=== PATIENT | female | born 1995 | race Caucasian/White ===

== ENCOUNTER 2019-11-12 03:25 | Emergency (ER) | payer BC, SELFPAY ==
[2019-11-12 03:33] VITALS: BP 109/77; PULSE 117; RESP 16; TEMP 36.8; O2SAT 99; BMI 19.0
--- NOTE | 2019-11-12 04:07 | ED_ITS ---
Entered by Evette Summers, acting as scribe for Xavier Kilgore DO Nov 12, 2019 03:25 HPI - Skin/Abscess/Foreign Bdy General: Chief complaint: Skin/Abscess/Foreign Body Stated complaint: BOIL ON RIGHT LEG Time Seen by Provider: 11/12/19 04:08 Source: patient Mode of arrival: ambulatory History of Present Illness: HPI narrative: 23 y/o female presents to the ED with complaint of boil to right leg. MD complaint: abscess/boil Onset (ago): day(s) (5) Location: LLE (thigh) Severity: moderate Quality: burning Pain Consistency: constant Relieving factors: none Associated symptoms: Reports fever(s); Deny chills, nausea or vomiting Review of Systems Const: Reports: fever; Denies: chills Eyes: Denies: change in vision or blurry vision ENMT: Denies: painful swallowing, swelling of lips/tongue, bleeding gums, dental pain, Change in hearing, nose bleeds, post nasal drip or facial/sinus pain Card: Denies: chest pain, palpitations, irregular heart rhythm, edema, swelling of feet/ankles, shortness of breath on exertion or shortness of breath when lying down Resp: Denies: shortness of breath, productive cough, non-productive cough or wheezing GI: Denies: abdominal pain, nausea, vomiting, rectal pain, blood in stool or black tarry stool : Denies: painful urination, urinary frequency, urinary urgency or blood in urine Musc: Denies: neck pain, back pain, redness or joint warmth Skin/Breast: Reports: redness, skin pain, skin tenderness and skin swelling; Denies: rash or itching Neuro: Denies: headache, dizziness, vertigo, confusion or seizure-like activity Psych: Denies: anxiety, visual hallucinations or auditory hallucinations PFSH ED PFSH: Statuses (acute, chronic, etc) shown below reflect problem list status as previously entered and may not be historically accurate Social History Smoking and tobacco status: current every day smoker Physical Exam Const: COMMON NORMALS: alert GENERAL APPEARANCE: well developed ORIENTATION/CONSCIOUSNESS: Yes awake, Yes oriented to person, Yes oriented to place and Yes oriented to time HENMT: COMMON NORMALS: normocephalic, external ears normal, external nose normal and moist oral mucous membranes HEAD & SCALP: normocephalic; no scalp tenderness FACE & SINUS: normal facial exam NOSE: external nose normal and no nasal discharge EXTERNAL EAR: Yes external ears normal MOUTH: tongue normal TEETH & GINGIVA: no abnormal tooth and associated gingiva THROAT: posterior oropharynx normal; no peritonsillar mass Eye: COMMON NORMALS: PERRL, EOMs intact bilaterally and conjunctivae normal EYELID: eyelids normal CONJUNCTIVA: Yes conjunctivae normal PUPIL: Yes PERRL Neck/C-Spine: COMMON NORMALS: full ROM GENERAL: Yes anterior neck swelling and No tracheal deviation CERVICAL SPINE: Yes normal cervical lordosis, No cervical spine tenderness, No step off deformity, No paracervical muscle tenderness and No paracervical muscle spasm Chest: COMMONS NORMALS: inspection of chest normal CHEST: Yes symmetrical chest wall rise and No tenderness Resp: COMMON NORMALS: clear to auscultation bilaterally EFFORT & INSPECTION: No tachypneic, No respiratory distress, No retractions, No uses accessory muscles and No tracheal deviation AUSCULTATION: clear to auscultation bilaterally, no rhonchi, no wheezes and lung sounds not diminished Cardio: COMMON NORMALS: regular rate and regular rhythm RATE: regular rate RHYTHM: regular rhythm HEART SOUNDS: no murmurs PERIPHERAL PULSES: radial pulses present GI: INSPECTION: No abdominal distension AUSCULTATION: No hyperactive bowel sounds and No hypoactive bowel sounds PALPATION: No tender, No guarding and No rigid PERCUSSION: no dullness to percussion and no tympanic to percussion : COMMON NORMALS: Yes no CVA tenderness BLADDER/KIDNEY EXAM: Yes no CVA tenderness Back/Pelvis: COMMON NORMALS: no CVA tenderness PELVIS: Yes no pain with anterior-posterior compression and Yes no pain with lateral compression Extremity: GENERAL: Yes weight-bearing difficulty LEFT LOWER EXTREMITY: Yes upper leg (6-7 cm of induration on ultrasound) Neuro: SENSORIUM/ORIENTATION: Yes alert, Yes oriented to person, Yes oriented to place and Yes oriented to time Psych: COMMON NORMALS: mental status grossly normal and speech normal SPE ECH: Yes normal speech Skin: GENERAL SKIN EXAM: erythema OTHER: abscess/boil to right thigh Procedures Abscess I/D Site: lower extremity Side (if applicable): right Sedation/analgesia: fentanyl Local Anesthetic: lidocaine 1% and bupivacaine 0.5% Technique: incised with #11 blade Irrigation: No Packing used?: plain Course Vital Signs: Vital signs: Vital Signs Temperature 98.2 F 11/12/19 03:33 Pulse Rate 100 11/12/19 06:19 Respiratory Rate 16 11/12/19 06:19 Blood Pressure 130/74 11/12/19 06:19 Pulse Oximetry 97 11/12/19 06:19 Discharge Plan Discharge Patient Disposition: Home, Self-Care Clinical Impression: Abscess of skin or subcutaneous tissue Qualifiers: Site of cutaneous abscess of extremity: lower extremity Condition: Stable Prescriptions: [place] 5-325 mg tablet 1 tab PO Q6H PRN (Reason: pain) Qty: 10 RF: 0 sulfamethoxazole-trimethoprim [Bactrim DS] 800-160 mg tablet 2 tab PO BID 10 Days Qty: 40 RF: 0 No Action No Known Home Medications RF: 0 Discharge Orders: Discharge Order (Routine); Ordered 11/12/19 Ordered By: Xavier Kilgore Referrals: Gregorio Jones MD [Primary Care Provider] - 4-7 days Discharge Diet: Usual diet Patient Instructions: Abscess Incision and Drainage (ED) Activity Restrictions/Additional Instructions: Return for worsening redness, streaking, pain, swelling despite 2-3 doses of antibiotics. Return for vomiting liquids or medications, fever greater than 100 despite antibiotics, other concerning symptoms. Stand Alone Forms: Work/Release Restrictions Discharge Date/Time: 11/12/19 06:20 Coding Level of Care Code ED Road Builder for Alf Rodriguez The documentation recorded by the Kristopher ro Ashley, accurately reflects the service I personally performed and the decisions made by Jame cabral Jeremy John, DO Nov 12, 2019 03:25
[2019-11-12] MEDS: fentaNYL 50 mcg/mL INJ 2mL 150 MCG IVP (05:10)
[2019-11-12] MEDS: ondansetron 2 mg/ML SDV 2 mL 4 MG IVP (05:11)
[2019-11-12 05:13] VITALS: PULSE 101; RESP 14; O2SAT 94
--- NOTE | 2019-11-12 05:48 | PC.NURSE ---
Called report to Karen in OB
[2019-11-12] MEDS: sulfamethoxazole-trimeth DS 160-800 mg Tablet 2 TAB PO (05:53)
[2019-11-12 06:19] VITALS: BP 130/74; PULSE 100; RESP 16; O2SAT 97
== END 2019-11-12 06:20 | disposition home or self-care (01) ==
PROVIDERS: Emergency Provider Emergency Medicine; Family Provider Family Medicine; PCP Family Medicine
DX: L02.415 Cutaneous abscess of right lower limb (principal); F17.210 Nicotine dependence, cigarettes, uncomplicated
CPT/HCPCS: 10060; 87070; 87075; 87077; 87186; 87205; 96374; 96375; 99282; J2405; J3010; J3490

== ENCOUNTER 2019-11-30 15:39 | Outpatient (CLI) | payer BC, SELFPAY | END 2019-11-30 15:40 | disposition home or self-care (01) | LOC: SPT 15:40 | PROVIDERS: Family Provider Family Medicine; PCP Family Medicine; Visit Provider Orthopaedic Surgery | DX: S62.306D Unspecified fracture of fifth metacarpal bone, right hand, subsequent encounter for fracture with routine healing (principal); X58.XXXD Exposure to other specified factors, subsequent encounter | CPT/HCPCS: L3984 ==

== ENCOUNTER → 2020-12-10 16:05 | Outpatient (BNVA) | payer BC, SELFPAY | PROVIDERS: Family Provider Family Medicine; PCP Family Medicine; Visit Provider Nurse Practitioner | DX: R39.9 Unspecified symptoms and signs involving the genitourinary system (principal); R30.0 Dysuria | CPT/HCPCS: 81000; 87086 ==

== ENCOUNTER 2021-05-20 08:50 | Emergency (ER) | payer BC, SELFPAY ==
[2021-05-20 09:00] VITALS: BP 132/85; PULSE 126; RESP 15; TEMP 2.4; TEMP 36.4; O2SAT 100; BMI 18.2
--- NOTE | 2021-05-20 09:12 | ED_ITS ---
HPI - General Adult General: Chief complaint: General Medical Stated complaint: Lower back pain, lower abd pain Time Seen by Provider: 05/20/21 08:59 History of Present Illness: HPI narrative: Patient is a 25-year-old female comes to the ED with bilateral flank pain and dysuria. Symptoms started approximately 1 week ago. The flank pain is on both right and left sides and she rates it currently an 8 out of 10. The pain radiates around her sides and into her pelvis. She also reports having some dysuria, increased urine frequency and visible blood in urine. She says the visible blood in urine has resolved over the past couple days. She denies any fever, chills, nausea/vomiting, bowel symptoms. Associated symptoms: Deny chest pain, dyspnea, headache(s), nausea, rash, palpitations or vomiting Review of Systems Const: Denies: fever(s), chills or fatigue Eyes: Denies: change in vision or eye discomfort ENMT: Denies: throat pain, odynophagia, nasal discharge or nasal congestion Card: Denies: chest pain, palpitations, edema, swelling of feet/ankles, dyspnea on exertion or orthopnea Resp: Denies: dyspnea, productive cough or non-productive cough GI: Denies: abdominal pain, nausea, vomiting, diarrhea, constipation or hematochezia : Reports: flank pain, dysuria and hematuria Musc: Denies: neck pain, back pain or extremity swelling Skin/Breast: Denies: rash or new lesions Neuro: Denies: headache(s), numbness in extremities or weakness in extremities PFS ED PFSH: Social History Smoking and tobacco status: current every day smoker Physical Exam Const: COMMON NORMALS: no acute distress, patient oriented x3 and alert GENERAL APPEARANCE: cooperative and comfortable HENMT: COMMON NORMALS: normocephalic HEAD & SCALP: normocephalic MOUTH: Normal oral and palatal mucosa present THROAT: posterior oropharynx normal and uvula midline Eye: COMMON NORMALS: Equal, round and reactive pupils present PUPIL: Yes Equal, round and reactive pupils present Neck/C-Spine: COMMON NORMALS: supple GENERAL: Yes normal visual inspection Resp: COMMON NORMALS: normal respiratory effort, No retractions, No use of accessory muscles and clear to auscultation bilaterally AUSCULTATION: clear to auscultation bilaterally Cardio: COMMON NORMALS: regular rate, regular rhythm, S1 normal heart sound present, S2 normal heart sound present, No gallops present (Cardio), No clicks present (Cardio), No murmurs present (Cardio) and Peripheral pulses 2+ throughout RATE: regular rate RHYTHM: regular rhythm HEART SOUNDS: S1 normal heart sound present and S2 normal heart sound present PERIPHERAL PULSES: Peripheral pulses 2+ throughout GI: COMMON NORMALS: Normal to inspection, nondistended, normoactive bowel sounds present, Soft to palpation, non-tender and no masses PALPATION: Yes Soft to palpation and Yes Bladder palpation abnormal : BLADDER/KIDNEY EXAM: Yes Bladder palpation abnormal Bladder abnormal details: tender and Yes CVA tenderness bilateral Back/Pelvis: GENERAL BACK: Yes CVA tenderness Extremity: COMMON NORMALS: normal to inspection Neuro: COMMON NORMALS: patient oriented x3 and moves all extremities SENSORIUM/ORIENTATION: Yes alert Skin: GENERAL SKIN EXAM: dry skin Course Vital Signs: Vital signs: Vital Signs Temperature 36.4 F L 05/20/21 09:00 Pulse Rate 87 05/20/21 13:00 Respiratory Rate 16 05/20/21 13:00 Blood Pressure 120/76 05/20/21 13:00 Pulse Oximetry 98 05/20/21 13:00 MDM - General Adult MDM Narrative: Medical decision making narrative: Patient is a 25-year-old fe male who comes to the ED with UTI symptoms. Exam shows a healthy nontoxic appearing patient in no acute distress or pain. She has bilateral CVA tenderness and bladder tenderness. Vitals are stable. White blood cell count 14.5 but the rest of CBC, CMP and lipase were unremarkable. UA showed a little bit of blood, but no indicators for infection. CT the abdomen pelvis showed a left ovarian cyst but no other acute findings. Due to patient's symptoms have been to treat her for UTI. I put patient on a prescription for cefdinir and discharged her home. I told her to follow-up with her PCP in 7 to 10 days reevaluation. Return to ED precautions given. Patient understood agreed with plan. Lab Data: Attestation: I reviewed the patient's lab results. Labs: Lab Results 05/20/21 05/20/21 05/20/21 Range/Units 09:16 10:40 10:40 WBC 14.5 H (4.0-10.0) 10^3/ uL RBC 4.85 (4.1-5.3) 10^6/u L Hgb 14.4 (11.5-15.3) g/dL Hct 45.0 (37.0-47.0) % MCV 92.8 (81-99) fL MCH 29.7 (28.0-34.0) pg MCHC 32.0 (30.0-36.0) g/dL RDW 12.3 (12.1-15.1) % Plt Count 301 (130-400) 10^3/c mm MPV 9.9 (7.4-10.4) fL Neut % (Auto) 75.6 % Lymph % (Auto) 16.3 % [place] % (Auto) 6.8 % Eos % (Auto) 0.6 % Baso % (Auto) 0.3 % Neut # (Auto) 10.97 H (1.8-7.7) 10^3/u L Lymph # (Auto) 2.4 (0.8-4.8) 10^3/u L [place] # (Auto) 1.0 H (0.2-0.9) 10^3/u L Eos # (Auto) 0.1 (0.0-0.8) 10^3/u L Baso # (Auto) 0.0 (0.0-0.1) 10^3/u L Nucleated RBC % (a uto) 0 % Nucleated RBCs # 0.0 /100WBC Sodium 139 (136-145) mmol/L Potassium 4.2 (3.5-5.1) mmol/L Chloride 101 (98-107) mmol/L Carbon Dioxide 26 (22-29) mmol/L Anion Gap 16.2 (5-19) BUN 9 (6-20) mg/dL Creatinine 0.6 (0.5-0.9) mg/dL GFR Calculation 121.8 (90-130) mL/min Glucose 90 (65-115) mg/dL Calculated Osmolal ity 286 (285-295) mOsm/k g Calcium 9.2 (8.5-10.5) mg/dL Total Bilirubin 0.5 (0.15-1.2) mg/dL AST 13 (0-32) U/L ALT 7 (0-33) U/L Alkaline Phosphata se 74 (35-105) IU/L Total Protein 8.0 (6.6-8.7) g/dL Albumin 4.6 (3.5-5.2) g/dL Globulin 3.4 (1.3-4.6) g/dL Lipase 21 (13-60) U/L HCG, Qual (Negative) Urine Color Yellow (Yellow) Urine Appearance Clear (CLEAR) Urine pH 7 (5-7) Ur Specific Gravit y 1.000 L (1.005-1.030) Urine Protein Neg (Negative) Urine Glucose (UA) Norm (Normal) Urine Ketones Negative (Negative) Urine Blood 2+ H (Negative) Urine Nitrate Negative (Negative) Urine Bilirubin Neg (Negative) Urine Urobilinogen Norm (Negative) mg/dL Ur Leukocyte Alfreda ase Negative (Negative) Urine RBC 10-15 H (0-2) /hpf Urine WBC None (0-5) /hpf Ur Squamous Epith Cells 0-4 H (0-5) /hpf Amorphous Sediment Not Reportable Urine Bacteria 1+ H (NONE) /hpf 05/20/21 Range/Units 10:40 WBC (4.0-10.0) 10^3/ uL RBC (4.1-5.3) 10^6/u L Hgb (11.5-15.3) g/dL Hct (37.0-47.0) % MCV (81-99) fL MCH (28.0-34.0) pg MCHC (30.0-36.0) g/dL RDW (12.1-15.1) % Plt Count (130-400) 10^3/c mm MPV (7.4-10.4) fL Neut % (Auto) % Lymph % (Auto) % [place] % (Auto) % Eos % (Auto) % Baso % (Auto) % Neut # (Auto) (1.8-7.7) 10^3/u L Lymph # (Auto) (0.8-4.8) 10^3/u L [place] # (Auto) (0.2-0.9) 10^3/u L Eos # (Auto) (0.0-0.8) 10^3/u L Baso # (Auto) (0.0-0.1) 10^3/u L Nucleated RBC % (a uto) % Nucleated RBCs # /100WBC Sodium (136-145) mmol/L Potassium (3.5-5.1) mmol/L Chloride (98-107) mmol/L Carbon Dioxide (22-29) mmol/L Anion Gap (5-19) BUN (6-20) mg/dL Creatinine (0.5-0.9) mg/dL GFR Calculation (90-130) mL/min Glucose (65-115) mg/dL Calculated Osmolal ity (285-295) mOsm/k g Calcium (8.5-10.5) mg/dL Total Bilirubin (0.15-1.2) mg/dL AST (0-32) U/L ALT (0-33) U/L Alkaline Phosphata se (35-105) IU/L Total Protein (6.6-8.7) g/dL Albumin (3.5-5.2) g/dL Globulin (1.3-4.6) g/dL Lipase (13-60) U/L HCG, Qual Negative (Negative) Urine Color (Yellow) Urine Appearance (CLEAR) Urine pH (5-7) Ur Specific Gravit y (1.005-1.030) Urine Protein (Negative) Urine Glucose (UA) (Normal) Urine Ketones (Negative) Urine Blood (Negative) Urine Nitrate (Negative) Urine Bilirubin (Negative) Urine Urobilinogen (Negative) mg/dL Ur Leukocyte Alfreda ase (Negative) Urine RBC (0-2) /hpf Urine WBC (0-5) /hpf Ur Squamous Epith Cells (0-5) /hpf Amorphous Sediment Urine Bacteria (NONE) /hpf Imaging Data^: CT Abd/Pel: Attestation: I personally reviewed and interpreted this imaging study as follows: Radiologist's impression: [address] [id number] Scan ReportSigned Patient: Linda Henson #: [id number]: [id number]#:[id number]/Sex: 25 / FADM Date: 05/20/21Loc: ERRoom/Bed:Attending Dr: Ordering Provider/Ordering MD: Gregorio Cornelius Date of Service: 05/20/21 Procedure(s): CT kidney stone 34989 Accession Number(s): [id number] Report Number: [id number] WS: [id number] CT ABDOMEN AND PELVIS NONCONTRAST HISTORY: flank pain with blood in urine TECHNIQUE: Imaging performed through the abdomen and pelvis. Coronal and sagittal reformats are submitted. All CT scans at [facility] use at least one of these dose optimization techniques: automated exposure control; mA and/or kV adjustment per patient size (includes targeted exams where dose is matched to clinical indication); or iterative reconstruction. DLP: 554.19 mGy.cm COMPARISON: 11/07/2014 Lower thorax: Lung bases are clear. Visualized heart is normal. No hiatal hernia. Liver: Normal size liver. No mass or bile duct dilatation. Gallbladder: Normal gallbladder. Pancreas: Poorly visualized pancreas due to lack of body fat. Spleen: Normal. Adrenal glands: Normal. No mass. Right kidney: 2 mm calcification upper pole RIGHT kidney. No hydronephrosis or hydroureter. Left kidney: Normal size kidney with no mass or hydronephrosis. Aorta: Normal abdominal aorta, no aneurysm or atherosclerosis. No free fluid, intraperitoneal air or significant lymphadenopathy. GI tract: Normal appendix. No GI tract obstruction. Abdominal wall: Negative. No hernia. Pelvis: LEFT ovarian cyst measures 2.7 x 2.5 cm. No free fluid in the pelvis or adenopathy. Osseous structures: Unremarkable. CT/CT kidney stone [id number] IMPRESSION: 1. No hydronephrosis or hydroureter. 2. 2 mm nonobstructing calcification upper pole RIGHT kidney. 3. LEFT ovarian cyst, 2.7 x 2.5 cm. 4. Normal appendix. Dictated By:Ayesha Ga DOSigned By:Ayesha Ga DOSigned Date/Time:05/20/21 1153DD/ 1148 Discharge Plan Discharge Patient Disposition: Home Clinical Impression: UTI (urinary tract infection) Qualifiers: Urinary tract infection type: acute cystitis Hematuria presence: with hematuria Qualified Code(s): N30.01 - Acute cystitis with hematuria Condition: Stable Prescriptions: New cefdinir 300 mg capsule 300 mg PO BID 10 Days Qty: 20 RF: 0 ibuprofen 800 mg tablet 800 mg PO Q8H PRN (Reason: pain) Qty: 20 RF: 0 No Action No Known Home Medications RF: 0 Discharge Orders: Discharge ED (Routine); Ordered 05/20/21 Ordered By: Gregorio Cornelius Referrals: Gregorio Jones MD [Primary Care Provider] - Discharge Diet: Regular Discharge Activity: Resume usual activity Patient Instructions: Urinary Tract Infection in Women (ED) Activity Restrictions/Additional Instructions: Follow-up with medical provider as directed. Take medications as prescribed. Return to the ER or your medical provider if condition worsens. Please read and understand discharge instructions. Thank you for choosing [facility] for your healthcare needs today. Please realize this is an emergency room and that we are providing you with a medical screening exam and this may not be complete and all inclusive of all the testing and or work up that you may need to determine your ailment or severity of your illness. It is very important that you follow up as instructed or that you return to the Emergency Department should you have concerns or if your condition changes or worsens in any way. Coding Level of Care Code ED Rn Referral for Alf Fwd Exam Comprehensive
[2021-05-20 09:46] LABS: Add Urine Culture? Yes; Bacteria Urine 1+ /hpf; Bilirubin Urine Neg (Negative); Blood Urine 2+ (Negative); Glucose Urine UA Norm (Normal); Ketones Urine Negative (Negative); Leukocyte Esterase Urine Negative (Negative); Nitrate Urine Negative (Negative); Protein Urine Neg (Negative); Squamous Epithelial Cell Urine 0-4 /hpf (0-5); Urine Appearance Clear (CLEAR); Urine Color Yellow (Yellow); Urobilinogen Urine Norm (Negative); pH Urine 7 (5-7)
[2021-05-20 10:00] VITALS: RESP 15; O2SAT 98
--- NOTE | 2021-05-20 10:01 | CT_ITS ---
WS: [id number] CT ABDOMEN AND PELVIS NONCONTRAST HISTORY: flank pain with blood in urine TECHNIQUE: Imaging performed through the abdomen and pelvis. Coronal and sagittal reformats are submi tted. All CT scans at [facility] use at least one of these dose optimization techniques: automated exposure control; mA and/or kV adjustment per patient size (includes targeted exams where d ose is matched to clinical indication); or iterative reconstruction. DLP: 554.19 mGy.cm COMPARISON: 11/07/2014 Lower thorax: Lung bases are clear. Visualized heart is normal. No hiatal hernia. Liver: Normal size liver. No mass or bile duct dilatation. Gallbladder: Normal gallbladder. Pancreas: Poorly visualized pancreas due to lack of body fat. Spleen: Normal. Adrenal glands: Normal. No mass. Right kidney: 2 mm calcification upper pole RIGHT kidney. No hydronephrosis or hydroureter. Left kidney: Normal size kidney with no mass or hydronephrosis. Aorta: Normal abdominal aorta, no aneurysm or atherosclerosis. No free fluid, intraperitoneal air or significant lymphadenopathy. GI tract: Normal appendix. No GI tract obstruction. Abdominal wall: Negative. No hernia. Pelvis: LEFT ovarian cyst measures 2.7 x 2.5 cm. No free fluid in the pelvis or adenopathy. Osseous structures: Unremarkable. CT/CT kidney stone [id number] IMPRESSION: 1. No hydronephrosis or hydroureter. 2. 2 mm nonobstructing calcification upper pole RIGHT kidney. 3. LEFT ovarian cyst, 2.7 x 2.5 cm. 4. Normal appendix.
--- NOTE | 2021-05-20 10:31 | PC.NURSE ---
UPDATED CARE PROVIDER THAT IV ACCESS AND LABS UNABLE TO BE OBTAINED YET AFTER 3 ATTEMPTS.
[2021-05-20 10:50] LABS: Basophils % 0.3 %; Eosinophils # 0.1 10^3/uL (0.0-0.8); Eosinophils % 0.6 %; Hemoglobin 14.4 g/dL (11.5-15.3); Lymphocytes # 2.4 10^3/uL (0.8-4.8); Lymphocytes % 16.3 %; Mean Corpuscular Hemoglobin 29.7 pg (28.0-34.0); Mean Corpuscular Volume 92.8 fL (81-99); Mean Platelet Volume 9.9 fL (7.4-10.4); Monocytes % 6.8 %; Neutrophils # 10.97 10^3/uL (1.8-7.7); Neutrophils % 75.6 %; Nucleated Red Blood Cells % 0 %; Platelet Count 301 10^3/cmm (130-400); Red Blood Count 4.85 10^6/uL (4.1-5.3); Red Cell Distribution Width 12.3 % (12.1-15.1); White Blood Count 14.5 10^3/uL (4.0-10.0)
[2021-05-20 11:12] VITALS: RESP 20; O2SAT 99
[2021-05-20 11:12] LABS: Alanine Aminotransferase 7 U/L (0-33); Albumin Level 4.6 g/dL (3.5-5.2); Alkaline Phosphatase 74 IU/L (35-105); Anion Gap 16.2 (5-19); Aspartate Amino Transferase 13 U/L (0-32); Blood Urea Nitrogen 9 mg/dL (6-20); Calcium 9.2 mg/dL (8.5-10.5); Carbon Dioxide 26 mmol/L (22-29); Chloride 101 mmol/L (98-107); Globulin 3.4 g/dL (1.3-4.6); Glomerular Filtration Rate 121.8 mL/min (90-130); Glucose 90 mg/dL (65-115); Lipase 21 U/L (13-60); Osmolality Calculated 286 mOsm/kg (285-295); Potassium 4.2 mmol/L (3.5-5.1); Sodium 139 mmol/L (136-145); Total Bilirubin 0.5 mg/dL (0.15-1.2)
[2021-05-20] MEDS: morphine 4 mg/mL SDV 1 mL IVP (11:12)
[2021-05-20 11:13] LABS: HCG, Serum Qual Negative (Negative)
[2021-05-20 12:00] VITALS: BP 133/86; PULSE 98; RESP 14; O2SAT 96
[2021-05-20] MEDS: ketorolac 30 mg/mL INJ IVP (12:14)
[2021-05-20 13:00] VITALS: BP 120/76; PULSE 87; RESP 16; O2SAT 98
== END 2021-05-20 13:03 | disposition home or self-care (01) ==
PROVIDERS: Emergency Provider Physician Assistant; PCP Family Medicine
DX: N30.01 Acute cystitis with hematuria (principal); F17.200 Nicotine dependence, unspecified, uncomplicated
CPT/HCPCS: 74176; 80053; 81001; 83690; 84703; 85025; 87077; 87086; 87186; 96374; 96375; 99284; J1885; J2270

== ENCOUNTER 2021-09-03 05:39 | Emergency (ER) | payer SELFPAY ==
[2021-09-03 05:48] VITALS: BP 128/76; PULSE 98; RESP 16; TEMP 36.8; O2SAT 98; BMI 18.2
[2021-09-03 06:00] LABS: Basophils % 0.4 %; Eosinophils # 0.1 10^3/uL (0.0-0.8); Eosinophils % 1.2 %; Hematocrit 43.7 % (37.0-47.0); Hemoglobin 13.9 g/dL (11.5-15.3); Lymphocytes # 3.5 10^3/uL (0.8-4.8); Lymphocytes % 38.2 %; Mean Corpuscular HGB Conc 31.8 g/dL (30.0-36.0); Mean Corpuscular Hemoglobin 29.3 pg (28.0-34.0); Mean Platelet Volume 9.9 fL (7.4-10.4); Monocytes # 0.7 10^3/uL (0.2-0.9); Monocytes % 7.9 %; Neutrophils # 4.76 10^3/uL (1.8-7.7); Neutrophils % 52.2 %; Nucleated Red Blood Cells % 0 %; Platelet Count 315 10^3/cmm (130-400); Red Blood Count 4.75 10^6/uL (4.1-5.3); Red Cell Distribution Width 13.3 % (12.1-15.1); White Blood Count 9.1 10^3/uL (4.0-10.0)
--- NOTE | 2021-09-03 06:05 | ED_ITS ---
HPI - General Adult General: Chief complaint: Psychiatric Symptoms Stated complaint: MHE Time Seen by Provider: 09/03/21 06:01 History of Present Illness: HPI narrative: HPI: [25]yo patient w/ hx of depression and anxiety BIBA for anxiety/depression. On arrival, the patient is AAOx3 and cooperative with my evaluation. No focal complaints of chest pain, shortness of breath, palpitations, N/V, focal GI/ complaints. Currently denies SI/HI. +passive SI. No complaints of hallucinations. Onset: chronic Duration: ongoing Location: home Severity: severe Review of Systems Narrative: Constitutional: No fever, no chills. HEENT: No vision changes CV: No chest pain, no palpitations PULM: No productive cough, no dyspnea. GI: No abdominal pain, no N/V/D. : No dysuria MSKEL: No muscle pain SKIN: No new rashes, no lesions. NEURO: No headache, no focal weakness. HEME: No visible bruises PSYCH: Normal mood PFSH ED PFSH: Social History Smoking and tobacco status: current every day smoker Physical Exam Narrative: EXAM NARRATIVE: Head: Atraumatic Eyes: PERRL, conjunctiva without injection, eyes tracking ENT: Mucous membrane moist NECK: Supple without lymphadenopathy LUNGS: LCTAB CV: RRR ABDOMEN: Soft, nontender EXTREMITY: Normal ROM SKIN: No rash or erythema NEURO: Awake and alert. No focal weakness PSYCH: Cooperative mood and affect. Course Vital Signs: Vital signs: Vital Signs Temperature 98.3 F 09/03/21 05:48 Pulse Rate 98 09/03/21 05:48 Respiratory Rate 16 09/03/21 05:48 Blood Pressure 128/76 09/03/21 05:48 Pulse Oximetry 98 09/03/21 05:48 MDM - General Adult MDM Narrative: Medical decision making narrative: [25]yo patient w/ hx of depression, SI presenting for depression and anxiety. HDS, exam within normal limit Thoughts are linear and organized, and the patient has no AH/VH, or HI. Clinically the patient displays no overt toxidrome; they are well appearing, with low suspicion for toxic ingestion given history and exam. Symptoms unlikely 2/2 anemia, hypothyroidism, infection, or ICH. Workup: CBC, CMP, Lipase, salicylate/tylenol, UDS, urine Intervention: 2mg of ativan PO Lab findings: wnl [9:09] On reassessment, labs and workup wnl. Patient is hemodynamically stable with no acute medical complaints. Case discussed with psychiatric provider Dr. Whitley at [facility] inpatient who evaluated patient via telepsych and recommended discharge with close follow-up. Provider recommended buspirone 15mg BID x 2 weeks and close followup with [facility] clinic Rx buspirone BID x 2 weeks I have given patient follow up with our pillowcase sewer to be seen by our outpatient psychiatry for further management of symptoms of depression and anxiety. Patient aware of a call from our pillowcase sewer to schedule for appointment(s) and verbalizes understanding of the importance of following up. Disposition: Discharge Lab Data: Labs: Lab Results 09/03/21 09/03/21 09/03/21 05:53 05:53 05:57 WBC 9.1 10^3/uL 10^3/ uL (4.0-10.0) RBC 4.75 10^6/uL 10^6 /uL (4.1-5.3) Hgb 13.9 g/dL g/dL (11.5-15.3) Hct 43.7 % % (37.0-47.0) MCV 92.0 fl fl (81-99) MCH 29.3 pg pg (28.0-34.0) MCHC 31.8 g/dL g/dL (30.0-36.0) RDW 13.3 % % (12.1-15.1) Plt Count 315 10^3/cmm 10^3 /cmm (130-400) MPV 9.9 fL fL (7.4-10.4) Neut % (Auto) 52.2 % % Lymph % (Auto) 38.2 % % Kaufman % (Auto) 7.9 % % Eos % (Auto) 1.2 % % Baso % (Auto) 0.4 % % Neut # (Auto) 4.76 10^3/uL 10^3 /uL (1.8-7.7) Lymph # (Auto) 3.5 10^3/uL 10^3/ uL (0.8-4.8) Kaufman # (Auto) 0.7 10^3/uL 10^3/ uL (0.2-0.9) Eos # (Auto) 0.1 10^3/uL 10^3/ uL (0.0-0.8) Baso # (Auto) 0.0 10^3/uL 10^3/ uL (0.0-0.1) Nucleated RBC % (a uto) 0 % % Nucleated RBCs # 0.0 /100WBC /100W BC Sodium 142 mmol/L mmol/L (136-145) Potassium 3.7 mmol/L mmol/L (3.5-5.1) Chloride 105 mmol/L mmol/L (98-107) Carbon Dioxide 26 mmol/L mmol/L (22-29) Anion Gap 14.7 (5-19) BUN 12 mg/dL mg/dL (6-20) Creatinine 0.5 mg/dL mg/dL (0.5-0.9) GFR Calculation 150.3 mL/min H mL /min (90-130) Glucose 89 mg/dL mg/dL (65-115) Calculated Osmolal ity 293 mOsm/kg mOsm/ kg (285-295) Calcium 9.0 mg/dL mg/dL (8.5-10.5) Total Bilirubin 0.2 mg/dL mg/dL (0.15-1.2) AST 16 U/L U/L (0-32) ALT 11 U/L U/L (0-33) Alkaline Phosphata se 61 IU/L IU/L (35-105) Total Protein 6.9 g/dL g/dL (6.6-8.7) Albumin 4.4 g/dL g/dL (3.5-5.2) Globulin 2.5 g/dL g/dL (1.3-4.6) HCG, Qual Negative (Negative) Salicylates < 0.3 mg/dL L mg/ dL (3-10) Urine Opiates Scre en Acetaminophen < 5.0 ug/mL L ug/ mL (10-30) Ur Barbiturates Sc reen Ur Phencyclidine S crn Ur Amphetamines Sc reen U Benzodiazepines Scrn Urine Cocaine Scre en U Marijuana (THC) Screen Ethyl Alcohol < 10 mg/dL mg/dL (0-10) 09/03/21 05:57 WBC RBC Hgb Hct MCV MCH MCHC RDW Plt Count MPV Neut % (Auto) Lymph % (Auto) Kaufman % (Auto) Eos % (Auto) Baso % (Auto) Neut # (Auto) Lymph # (Auto) Kaufman # (Auto) Eos # (Auto) Baso # (Auto) Nucleated RBC % (a uto) Nucleated RBCs # Sodium Potassium Chloride Carbon Dioxide Anion Gap BUN Creatinine GFR Calculation Glucose Calculated Osmolal ity Calcium Total Bilirubin AST ALT Alkaline Phosphata se Total Protein Albumin Globulin HCG, Qual Salicylates Urine Opiates Scre en Positive ng/mL H ng/mL (Negative) Acetaminophen Ur Barbiturates Sc reen Negative ng/mL ng /mL (Negative) Ur Phencyclidine S crn Negative ng/mL ng /mL (Negative) Ur Amphetamines Sc reen Negative ng/mL ng /mL (Negative) U Benzodiazepines Scrn Positive ng/mL H ng/mL (Negative) Urine Cocaine Scre en Negative ng/mL ng /mL (Negative) U Marijuana (THC) Screen Positive ng/mL H ng/mL (Negative) Ethyl Alcohol Discharge Plan Discharge Patient Disposition: Home Clinical Impression: Anxiety, Depression Condition: Stable Prescriptions: New buspirone 15 mg tablet 15 mg PO BID 14 Days Qty: 28 RF: 0 No Action Tylenol Ex Str Rapid Release 500 mg Tablet 1,000 mg PO Q4H PRN (Reason: Pain) RF: 0 ibuprofen 800 mg tablet 800 mg PO Q8H PRN (Reason: pain) Qty: 20 RF: 0 Discharge Orders: Discharge ED (Routine); Ordered 09/03/21 Ordered By: Jacqui Valero Referrals: Gregorio Jones MD [Primary Care Provider] - Discharge Diet: Advance as tolerated Discharge Activity: Resume usual activity Patient Instructions: Depression (ED), Anxiety (ED) Activity Restrictions/Additional Instructions: Please come back to the emergency room if you need help, have any hallucinations, or you have any depression or have thoughts about hurting yourself or other people. Coding Level of Care Code ED Salt Refiner for Alf Rodriguez
[2021-09-03] MEDS: LORazepam 2 mg Tablet PO (06:09)
[2021-09-03 06:14] LABS: HCG Qualitative Urine. Negative (Negative)
[2021-09-03 06:16] LABS: Alanine Aminotransferase 11 U/L (0-33); Albumin Level 4.4 g/dL (3.5-5.2); Alkaline Phosphatase 61 IU/L (35-105); Anion Gap 14.7 (5-19); Aspartate Amino Transferase 16 U/L (0-32); Blood Urea Nitrogen 12 mg/dL (6-20); Carbon Dioxide 26 mmol/L (22-29); Chloride 105 mmol/L (98-107); Globulin 2.5 g/dL (1.3-4.6); Glomerular Filtration Rate 150.3 mL/min (90-130); Glucose 89 mg/dL (65-115); Osmolality Calculated 293 mOsm/kg (285-295); Potassium 3.7 mmol/L (3.5-5.1); Sodium 142 mmol/L (136-145); Total Bilirubin 0.2 mg/dL (0.15-1.2); Total Protein 6.9 g/dL (6.6-8.7)
[2021-09-03 06:21] LABS: Amphetamines Screen Urine Negative (Negative); Barbiturates Screen Urine Negative (Negative); Benzodiazepines Screen Urine Positive (Negative); Cocaine Screen Urine Negative (Negative); Opiate Screen Urine Positive (Negative); PCP Screen Urine Negative (Negative); THC Screen Urine Positive (Negative)
[2021-09-03 06:23] LABS: Acetaminophen < 5.0 ug/mL (10-30); Alcohol Level < 10 mg/dL (0-10); Salicylate < 0.3 mg/dL (3-10)
[2021-09-03] MEDS: acetaminophen 500 mg Tablet PO (07:55)
--- NOTE | 2021-09-03 09:06 | W.PM.PSYCONS ---
Providers/Reason for Consult Consulting Physican/Specialty*: Santos Whitley MD. Psychiatry. Reason for Consult*: Evaluation for discharge and treatment. Requesting Physcian: Jacqui Valero Primary Care Provider: Gregorio Jones MD Psych Consult HPI History of Present Illness Linda Henson is a 25 year old female who presented to the emergency department with the following report: Chief complaint: Psychiatric Symptoms Stated complaint: MHE Time Seen by Provider: 09/03/21 06:01 History of Present Illness: HPI narrative: HPI: [25]yo patient w/ hx of depression and anxiety BIBA for anxiety/depression. On arrival, the patient is AAOx3 and cooperative with my evaluation. No focal complaints of chest pain, shortness of breath, palpitations, N/V, focal GI/ complaints. Currently denies SI/HI. +passive SI. No complaints of hallucinations. Onset: chronic Duration: ongoing Location: home Severity: severe. A psychiatric consult was requested because at one point she did mention at times her anxiety being so overwhelming that she wished she did not wake up, and for definitive evaluation of those above stated issues. She presents reporting that she does not have any psychiatric inpatient services and has not had significant outpatient services but reports she is pursuing that. She reports that her anxiety involves significant autonomic experience of shortness of breath feeling like her heart is racing, fast pulse and at times worrying that she is going to . She reports that she does not feel she needs hospitalized he just is worried that if she does not have some kind of intervention before things get worse she might need to come back to the hospital. We discussed interventions for anxiety including SSRIs, benzodiazepines etc. we discussed the risk benefits and alternatives of starting BuSpar 15 mg p.o. twice daily and she understood and agreed proceed as is documented in this note. She does smoke cigarettes, denies frequent alcohol use, endorses marijuana use denies any illicit drug use. PFSH NPU PFSH: Medical History (Updated 09/04/21 @ 11:30 by Maricarmen Swift) Psychiatric care Social History Smoking and tobacco status: current every day smoker Mental Status Exam MSE Comments: This is a thin white female with adequate grooming and eye contact. No abnormal movements except for psychomotor agitation. Cooperative with exam in mild distress. Speech was normal rate and volume. Mood described as anxious, affect congruent. Thought process organized. Thought content: Patient denied suicidal or homicidal ideation, there are no delusions reported noted, he denied any auditory visual hallucinations. Attention and concentration were intact and memory appeared reliable but none were formally tested. She is alert and oriented x3. Insight and judgment appear fair impulse control appears fair. Vitals/I&O/Wt Last Vital Signs Temp 98.3 F 09/03/21 05:48 Pulse 98 09/03/21 05:48 Resp 16 09/03/21 05:48 BP 128/76 09/03/21 05:48 Pulse Ox 98 09/03/21 05:48 Weight last 48 hrs Weight 54.431 kg A&P Assessment and plan (1) Anxiety: Status: Acute (2) Depression: Status: Acute (3) Dysuria: Status: Acute (4) Fracture of fifth metacarpal bone of right hand: Status: Acute Additional A&P Information This is a 25-year-old white female with a long history of anxiety without significant treatment who presents with a possible panic attack with significant anxiety who is open to a trial of medication and continuing her plan for outpatient referral. 1. Start BuSpar 15 mg p.o. twice daily. Could give first dose now. 2. Give prescription sufficient to get her to her appointment in less than 2 weeks. 3. No apparent need for acute/inpatient psychiatric services. 4. Agree with discharge. Attestations NPU Medical Necessity Statement*: N/A. Please see ED note for medical necessity however no need for inpatient psychiatric services noted. Coding Level of Care Code Acute Surplus Property Disposal Agent for Alf Rodriguez Diagnoses Anxiety F41.9 Depression F32.A Dysuria R30.0 Fracture of fifth metacarpal bone of right hand S62.306A
[2021-09-03 09:45] VITALS: BP 124/91; PULSE 105; RESP 14; O2SAT 100
--- NOTE | 2021-09-03 10:33 | DCPLANNER ---
manager film had message to speak with patient about services at [facility]. manager film called and spoke with patient and informed her of how to get services started at [facility].
== END 2021-09-03 09:40 | disposition home or self-care (01) ==
PROVIDERS: Emergency Medicine; Emergency Provider Emergency Medicine; PCP Family Medicine
DX: F41.9 Anxiety disorder, unspecified (principal); F32.A Depression, unspecified; F17.200 Nicotine dependence, unspecified, uncomplicated
CPT/HCPCS: 80053; 80306; 80307; 81025; 85025; 99283

== ENCOUNTER 2021-12-10 10:14 | Emergency (ER) | payer SELFPAY ==
[2021-12-10 10:35] VITALS: PULSE 87; RESP 16; TEMP 36.8; O2SAT 100; BMI 18.7
== END 2021-12-10 19:40 | disposition left against medical advice (07) ==
PROVIDERS: Emergency Provider Family Medicine; PCP Family Medicine
DX: Z53.21 Procedure and treatment not carried out due to patient leaving prior to being seen by health care provider (principal)

== ENCOUNTER 2022-03-31 19:43 | Emergency (ER) | payer SELFPAY ==
[2022-03-31 19:51] VITALS: BP 148/89; PULSE 70; RESP 18; TEMP 36.7; O2SAT 97; BMI 18.5
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
[2022-03-31] MEDS: neomycin-poly-dex Op 5 mL Btl 2 DROP EYE-BOTH (20:10)
[2022-03-31] MEDS: fluorescein 1 mg Strip EYE-BOTH (20:10)
[2022-03-31] MEDS: tetracaine 0.5% Op Soln 4 mL Btl 1 DROP EYE-BOTH (20:10)
[2022-03-31] MEDS: HYDROcodone-acetaminophen 5-325 mg Tablet 1 TAB PO (20:10)
[2022-03-31] MEDS: ibuprofen 800 mg tablet PO (20:21)
[2022-03-31] MEDS: bacitracin ointment Pkt 1 EACH TOPICAL (20:21)
== END 2022-03-31 20:49 | disposition home or self-care (01) ==
PROVIDERS: Emergency Provider Nurse Practitioner Family; PCP Family Medicine
DX: T20.17XA Burn of first degree of neck, initial encounter (principal); T31.0 Burns involving less than 10% of body surface; X03.8XXA Other exposure to controlled fire, not in building or structure, initial encounter
CPT/HCPCS: 99283

== ENCOUNTER 2022-07-23 07:54 | Emergency (ER) | payer SELFPAY ==
[2022-07-23 08:00] VITALS: BP 128/80; PULSE 101; RESP 15; TEMP 36.5; O2SAT 100; BMI 18.2
--- NOTE | 2022-07-23 08:47 | CT_ITS ---
WS: [id number] CT ABDOMEN PELVIS TECHNIQUE: Contrast-enhanced CT of the abdomen and pelvis with coronal and sagittal reformatted image s. CLINICAL INFORMATION: abd pain COMPARISON: None. DLP: 341.[address] scans at [facility] use at least one of these dose optimization techniques: automated e xposure control; mA and/or kV adjustment per patient size (includes targeted exams where dose is matc hed to clinical indication); or iterative reconstruction. FINDINGS: Diffuse fatty infiltration liver. Normal portal vein and splenic vein. Normal spleen. Normal renal pa renchymal enhancement. No hydronephrosis. Normal caliber abdominal aorta. Tiny amount of hazy opacity in the RIGHT lower lobe. Normal portal vein and splenic vein. Normal caliber abdominal aorta. Celiac and SMA are patent. Urine distended bladder. Enhancing RIGHT ovarian hemorrhagic or corpus luteum cyst measuring 1.8 cm. Small amount of free fluid in the pelvis. Physiologic thickening of the endometrium. Gallbladder is c ontracted. No high-grade small or large bowel obstruction. Low-lying cecum and RIGHT lower quadrant. Appendix is not visualized. No evidence of acute appendicitis. CT/CT abdomen pelvis w con* [id number] IMPRESSION: 1. Peripheral enhancing RIGHT ovarian hemorrhagic cyst or corpus luteum cyst m easuring 1.8 cm. Small amount of free fluid in the pelvis. 2. Normal physiologic endometrial thickening. 3. Low-lying cecum in the RIGHT lower pelvis. Appendix is not visualized altho ugh no evidence of acute appendicitis. 4. Tiny amount of hazy infiltrate in RIGHT lower lobe likely inflammatory or t race pneumonitis. 5. No evidence of high-grade small or large bowel obstruction. 6. No hydronephrosis in either kidney. 7. No other remarkable findings. Notified Chapin Murillo DO at 07/23/2022 10:01 AM.
--- NOTE | 2022-07-23 08:48 | ED_ITS ---
HPI - Abdominal Pain General: Chief Complaint: Abdominal Pain Stated Complaint: low abd pain Time Seen by Provider: 07/23/22 08:01 Source: patient Mode of arrival: ambulatory History of Present Illness: 26-year-old female presents emergency room complaining of right-sided lower back pain and flank pain that began about 2 weeks ago radiating to the right lower quadrant and into the right pelvic area. Patient states she previously had tubal ligation she is late for her current menstrual period she denies any hematuria no dysuria urgency or frequency. No history of kidney stones she has had frequent urinary tract infections in the past. No vomiting no diarrhea. MD elicited complaint: abdominal pain Onset (ago): week(s) (2) Location: RLQ Severity: moderate Quality: cramping Radiation: R flank Exacerbating factors: nothing Relieving factors: nothing Associated Symptoms: Reports GI cramping; Denies belching, bloating, change in bowel habits, change in stool character, chills, coffee ground emesis, constipation, diarrhea, dyspepsia, dysuria, excessive flatus, fever(s), heartburn, hematochezia, hematuria, hematemesis, fecal incontinence, loose stools, melena, nausea, poor appetite, syncope and vomiting Review of Systems Const: Denies: fever(s) or chills Card: Denies: syncope GI: Reports: GI cramping; Denies: nausea, vomiting, hematemesis, coffee ground emesis, heartburn, diarrhea, constipation, bloating, belching, excessive flatus, fecal incontinence, change in bowel habits, change in stool character, hematochezia or melena : Denies: dysuria or hematuria [facility] ED PFSH: Medical History Bipolar affective disorder, current episode mixed, without psychotic features Cannabis dependence with current use Generalized anxiety disorder Nicotine dependence, cigarettes, uncomplicated Opioid type dependence, episodic use Psychiatric care Social History Smoking and tobacco status: current every day smoker cigarettes Packs smoked per day: 1 Years cigarettes smoked: 11 Quit status (tobacco): not considering quitting Second hand smoke exposure: Yes Physical Exam Const: GENERAL APPEARANCE: cooperative and comfortable O RIENTATION/CONSCIOUSNESS: Yes awake, Yes oriented to person, Yes oriented to place and Yes oriented to time HENMT: COMMON NORMALS: normocephalic, atraumatic and hearing grossly normal bilaterally HEAD & SCALP: normocephalic and atraumatic Resp: COMMON NORMALS: normal respiratory effort, No retractions, No use of accessory muscles and clear to auscultation bilaterally AUSCULTATION: clear to auscultation bilaterally Cardio: COMMON NORMALS: regular rate, regular rhythm and No murmurs present (Cardio) RATE: regular rate RHYTHM: regular rhythm GI: COMMON NORMALS: Soft to palpation and No hepatosplenomegaly present AUSCULTATION: Yes normoactive bowel sounds PALPATION: Yes Soft to palpation, No Tenderness to palpation present (GI), No Guarding due to palpation present (GI) and Yes No hepatosplenomegaly present Extremity: COMMON NORMALS: normal to inspection, capillary refill normal, no clubbing, cyanosis or edema, no calf tenderness and no pedal edema Neuro: SENSORIUM/ORIENTATION: Yes oriented to person, Yes oriented to place and Yes oriented to time Skin: COMMON NORMALS: no rashes or lesions noted GENERAL SKIN EXAM: no rashes or lesions noted Course Vital Signs: Vital signs: Vital Signs Temperature 97.7 F 07/23/22 08:00 Pulse Rate 83 07/23/22 10:54 Respiratory Rate 16 07/23/22 10:54 Blood Pressure 129/86 07/23/22 10:54 Pulse Oximetry 98 07/23/22 10:54 Oxygen Delivery Me thod 07/23/22 10:54 MDM - Abdominal Pain Medical Decision Making Signs of ruptured ovarian cyst on the CT no other pathology noted. Discussed with the patient discharge home anti-inflammatories follow-up with primary care. Medical Records I reviewed the patient's medical records. Lab Data I reviewed the patient's lab results. : 07/23/22 08:46 07/23/22 08:46 Labs/Radiology: Radiology Impressions Abdomen/Pelvis CT 07/23/22 08:47 IMPRESSION: 1. Peripheral enhancing RIGHT ovarian hemorrhagic cyst or corpus luteum cyst measuring 1.8 cm. Small amount of free fluid in the pelvis. 2. Normal physiologic endometrial thickening. 3. Low-lying cecum in the RIGHT lower pelvis. Appendix is not visualized [facility] no evidence of acute appendicitis. 4. Tiny amount of hazy infiltrate in RIGHT lower lobe likely inflammatory or trace pneumonitis. 5. No evidence of high-grade small or large bowel obstruction. 6. No hydronephrosis in either kidney. 7. No other remarkable findings. Notified Chapin Murillo DO at 07/23/2022 10:01 AM. Laboratory Results WBC 9.4 10^3/uL (4.0-10.0) 07/23/22 08:46 RBC 4.34 10^6/uL (4.1-5.3) 07/23/22 08:46 Hgb 12.8 g/dL (11.5-15.3) 07/23/22 08:46 Hct 42.5 % (37.0-47.0) 07/23/22 08:46 MCV 97.9 fl (81-99) 07/23/22 08:46 MCH 29.5 pg (28.0-34.0) 07/23/22 08:46 MCHC 30.1 g/dL (30.0-36.0) 07/23/22 08:46 RDW 13.2 % (12.1-15.1) 07/23/22 08:46 Plt Count 263 10^3/cmm (130-400) 07/23/22 08:46 MPV 9.9 fL (7.4-10.4) 07/23/22 08:46 Neut % (Auto) 64.7 % 07/23/22 08:46 Lymph % (Auto) 25.0 % 07/23/22 08:46 [place] % (Auto) 8.4 % 07/23/22 08:46 Eos % (Auto) 1.1 % 07/23/22 08:46 Baso % (Auto) 0.5 % 07/23/22 08:46 Neut # (Auto) 6.06 10^3/uL (1.8-7.7) 07/23/22 08:46 Lymph # (Auto) 2.3 10^3/uL (0.8-4.8) 07/23/22 08:46 [place] # (Auto) 0.8 10^3/uL (0.2-0.9) 07/23/22 08:46 Eos # (Auto) 0.1 10^3/uL (0.0-0.8) 07/23/22 08:46 Baso # (Auto) 0.1 10^3/uL (0.0-0.1) 07/23/22 08:46 Nucleated RBC % (auto) 0 % 07/23/22 08:46 Nucleated RBCs # 0.0 /100WBC 07/23/22 08:46 Sodium 136 mmol/L (136-145) 07/23/22 08:46 Potassium 4.2 mmol/L (3.5-5.1) 07/23/22 08:46 Chloride 105 mmol/L (98-107) 07/23/22 08:46 Carbon Dioxide 21 mmol/L (22-29) L 07/23/22 08:46 Anion Gap 14.2 (5-19) 07/23/22 08:46 BUN 8 mg/dL (6-20) 07/23/22 08:46 Creatinine 0.6 mg/dL (0.5-0.9) 07/23/22 08:46 GFR Calculation 120.8 mL/min (90-130) 07/23/22 08:46 Glucose 68 mg/dL (65-115) 07/23/22 08:46 Calculated Osmolality 279 mOsm/kg (285-295) L 07/23/22 08:46 Calcium 8.6 mg/dL (8.5-10.5) 07/23/22 08:46 Total Bilirubin 0.2 mg/dL (0.15-1.2) 07/23/22 08:46 AST 21 U/L (0-32) 07/23/22 08:46 ALT 13 U/L (0-33) 07/23/22 08:46 Alkaline Phosphatase 63 U/L (35-105) 07/23/22 08:46 Total Protein 6.6 g/dL (6.6-8.7) 07/23/22 08:46 Albumin 3.8 g/dL (3.5-5.2) 07/23/22 08:46 Globulin 2.8 g/dL (1.3-4.6) 07/23/22 08:46 HCG, Qual Negative (Negative) 07/23/22 08:46 Urine Color Yellow (Yellow) 07/23/22 08:33 Urine Appearance Clear (CLEAR) 07/23/22 08:33 Urine pH 5 (5-7) 07/23/22 08:33 Ur Specific [place] 1.015 (1.005-1.030) 07/23/22 08:33 Urine Protein Neg (Negative) 07/23/22 08:33 Urine Glucose (UA) Norm (Normal) 07/23/22 08:33 Urine Ketones Negative (Negative) 07/23/22 08:33 Urine Blood 2+ (Negative) H 07/23/22 08:33 Urine Nitrate Negative (Negative) 07/23/22 08:33 Urine Bilirubin Neg (Negative) 07/23/22 08:33 Urine Urobilinogen Norm mg/dL (Negative) 07/23/22 08:33 Ur Leukocyte Esterase Trace (Negative) H 07/23/22 08:33 Urine RBC 5-10 /hpf (0-2) H 07/23/22 08:33 Urine WBC 5-10 /hpf (0-5) H 07/23/22 08:33 Ur Squamous Epith Cells 0-4 /hpf (0-5) H 07/23/22 08:33 Amorphous Sediment Not Reportable 07/23/22 08:33 Urine Bacteria 2+ /hpf (NONE) H 07/23/22 08:33 Discharge Plan Discharge Patient Disposition: Home Clinical Impression: Ovarian cyst Condition: Stable Prescriptions: New diclofenac sodium 75 mg tablet,delayed release (DR/EC) 75 mg PO Q12H PRN (Reason: pain) Qty: 20 0RF Discontinued ibuprofen 800 mg tablet 800 mg PO Q8H PRN (Reason: pain) Qty: 20 0RF No Action risperidone [Risperdal] 0.5 mg tablet 0.5 mg PO BEDTIME Qty: 15 2RF Rx Instructions: Take one tablet at bedtime trazodone 100 mg tablet 100 mg PO BEDTIME PRN (Reason: insomnia) Tylenol Ex Str Rapid Release 500 mg Tablet 1,000 mg PO Q4H PRN (Reason: Pain) Discharge Orders: Discharge ED (Routine); Ordered 07/23/22 Ordered By: Chapin Murillo Patient Instructions: Opioid Safety, Pain Management Coding Level of Care Code ED Asparagus Buncher for Alf Rodriguez
[2022-07-23 08:51] VITALS: BP 112/62; PULSE 67; RESP 18; O2SAT 100
[2022-07-23 08:51] LABS: Basophils # 0.1 10^3/uL (0.0-0.1); Basophils % 0.5 %; Eosinophils # 0.1 10^3/uL (0.0-0.8); Eosinophils % 1.1 %; Hematocrit 42.5 % (37.0-47.0); Hemoglobin 12.8 g/dL (11.5-15.3); Lymphocytes # 2.3 10^3/uL (0.8-4.8); Mean Corpuscular HGB Conc 30.1 g/dL (30.0-36.0); Mean Corpuscular Hemoglobin 29.5 pg (28.0-34.0); Mean Corpuscular Volume 97.9 fl (81-99); Mean Platelet Volume 9.9 fL (7.4-10.4); Monocytes # 0.8 10^3/uL (0.2-0.9); Monocytes % 8.4 %; Neutrophils # 6.06 10^3/uL (1.8-7.7); Neutrophils % 64.7 %; Nucleated Red Blood Cells % 0 %; Platelet Count 263 10^3/cmm (130-400); Red Blood Count 4.34 10^6/uL (4.1-5.3); Red Cell Distribution Width 13.2 % (12.1-15.1); White Blood Count 9.4 10^3/uL (4.0-10.0)
[2022-07-23 09:07] LABS: Add Urine Microscopic? YES; Bacteria Urine 2+ /hpf; Bilirubin Urine Neg (Negative); Blood Urine 2+ (Negative); Glucose Urine UA Norm (Normal); Ketones Urine Negative (Negative); Leukocyte Esterase Urine Trace (Negative); Nitrate Urine Negative (Negative); Protein Urine Neg (Negative); Specific Gravity, Urine 1.015 (1.005-1.030); Squamous Epithelial Cell Urine 0-4 /hpf (0-5); Urine Appearance Clear (CLEAR); Urine Color Yellow (Yellow); Urobilinogen Urine Norm (Negative); pH Urine 5 (5-7)
[2022-07-23 09:08] LABS: Add Urine Culture? Yes
[2022-07-23 09:16] LABS: HCG, Serum Qual Negative (Negative)
[2022-07-23 09:20] LABS: Alanine Aminotransferase 13 U/L (0-33); Albumin Level 3.8 g/dL (3.5-5.2); Alkaline Phosphatase 63 U/L (35-105); Aspartate Amino Transferase 21 U/L (0-32); Blood Urea Nitrogen 8 mg/dL (6-20); Calcium 8.6 mg/dL (8.5-10.5); Carbon Dioxide 21 mmol/L (22-29); Chloride 105 mmol/L (98-107); Creatinine Clr Calc Pharmacy 134.8355; Globulin 2.8 g/dL (1.3-4.6); Glomerular Filtration Rate 120.8 mL/min (90-130); Glucose 68 mg/dL (65-115); Osmolality Calculated 279 mOsm/kg (285-295); Sodium 136 mmol/L (136-145); Total Bilirubin 0.2 mg/dL (0.15-1.2); Total Protein 6.6 g/dL (6.6-8.7)
[2022-07-23 09:24] LABS: Anion Gap 14.2 (5-19); Potassium 4.2 mmol/L (3.5-5.1)
[2022-07-23 09:30] VITALS: BP 114/73; PULSE 84; RESP 18; O2SAT 100
[2022-07-23] MEDS: iohexol 350 mg/mL 100 mL Btl IV (09:37)
[2022-07-23 10:54] VITALS: BP 129/86; PULSE 83; RESP 16; O2SAT 98
== END 2022-07-23 10:56 | disposition home or self-care (01) ==
PROVIDERS: Emergency Provider Family Medicine
DX: N83.201 Unspecified ovarian cyst, right side (principal); F17.210 Nicotine dependence, cigarettes, uncomplicated
CPT/HCPCS: 74177; 80053; 81001; 84703; 85025; 87077; 87086; 87186; 99285; Q9967

== ENCOUNTER 2022-08-14 11:55 | Emergency (ER) | payer SELFPAY ==
--- NOTE | 2022-08-14 11:56 | XR_ITS ---
WS: [id number] Right wrist, 3 views, 08/14/2022 Clinical Data: pain and swelling Comparison: Right hand, 11/26/2019 Findings: No fractures or dislocations are seen. The carpal bones are intact. There is no soft tissue swelling. The distal radius and ulna are not remarkable. XR/XR wrist RT min 3V* [id number] Impression: Negative right wrist.
[2022-08-14 11:58] VITALS: BP 116/87; PULSE 131; RESP 18; TEMP 36.5; O2SAT 98; BMI 18.2
--- NOTE | 2022-08-14 12:17 | W.ED.FALL ---
HPI - Fall General: Chief Complaint: Fall Stated Complaint: RT hand/wrist swollen Time Seen by Provider: 08/14/22 12:03 Source: patient Mode of arrival: ambulatory Limitations: no limitations History of Present Illness: 6-year-old female presents to the ER today for right wrist pain x2 days. Patient reports 2 days ago she fell and caught her self with her right hand. She reports pain on the medial side of the right forearm and also the right thumb base. She denies any swelling. Denies any deformity or bruising. Patient reports pain not improving. Review of Systems General: Reports: 10 or more systems reviewed and unremarkable except in HPI and below PFSH ED PFSH: Medical History Bipolar affective disorder, current episode mixed, without psychotic features Cannabis dependence with current use Generalized anxiety disorder Nicotine dependence, cigarettes, uncomplicated Opioid type dependence, episodic use Psychiatric care Social History Smoking and tobacco status: current every day smoker cigarettes Packs smoked per day: 1 Years cigarettes smoked: 11 Quit status (tobacco): not considering quitting Second hand smoke exposure: Yes Physical Exam Const: COMMON NORMALS: no acute distress, average body habitus, patient oriented x3, no limitations, healthy appearing, alert and well nourished HENMT: COMMON NORMALS: normocephalic, external ears normal, Normal external nose present and moist oral mucous membranes HEAD & SCALP: normocephalic NOSE: Normal external nose present EXTERNAL EAR: Yes external ears normal Neck/C-Spine: COMMON NORMALS: full ROM Resp: COMMON NORMALS: normal respiratory effort EFFORT & INSPECTION: Yes able to speak in complete sentences Cardio: COMMON NORMALS: regular rhythm RATE: tachycardic RHYTHM: regular rhythm Extremity: NARRATIVE EXTREMITY EXAM: Patient has mild tenderness to palpation over the distal ulna of the right arm and also the base of the first metacarpal. No obvious swelling or deformities noted. Normal range of motion. Neuro: COMMON NORMALS: patient oriented x3 SENSORIUM/ORIENTATION: Yes alert Psych: COMMON NORMALS: mental status grossly normal, Normal thought process present and cooperative THOUGHT PROCESS: Normal thought process present Skin: COMMON NORMALS: no rashes or lesions noted and no wounds GENERAL SKIN EXAM: no rashes or lesions noted Course ED course: Patient has right wrist pain x2 days after a fall. We will get an x-ray at this time. No obvious deformities or swelling are noted. Vital Signs: Vital signs: Vital Signs Temperature 97.7 F 08/14/22 11:58 Pulse Rate 131 H 08/14/22 11:58 Respiratory Rate 18 08/14/22 11:58 Blood Pressure 116/87 08/14/22 11:58 Pulse Oximetry 98 08/14/22 11:58 Oxygen Delivery Me thod 08/14/22 11:58 MDM - Fall Medical Decision Making X-ray of the right wrist is negative for acute fracture. Likely patient has a sprain. Recommended rest, ice, ibuprofen. Wear a Velcro wrist splint until symptoms improve. Follow-up with PCP in 7 to 10 days if no improvement. Return to the ER with new or worsening symptoms. Patient verbalized understanding and was in agreement with the treatment plan. Lab Data Radiology Impressions Wrist X-Ray 08/14/22 11:56 Impression: Negative right wrist. Critical Care Time Critical Care Time: Critical Care Time: No Discharge Plan Discharge Patient Disposition: Home Clinical Impression: Right wrist sprain Qualifiers: Encounter type: initial encounter Qualified Code(s): S63.501A - Unspecified sprain of right wrist, initial encounter Condition: Stable Prescriptions: No Action risperidone [Risperdal] 0.5 mg tablet 0.5 mg PO BEDTIME Qty: 15 2RF Rx Instructions: Take one tablet at bedtime trazodone 100 mg tablet 100 mg PO BEDTIME PRN (Reason: insomnia) Tylenol Ex Str Rapid Release 500 mg Tablet 1,000 mg PO Q4H PRN (Reason: Pain) diclofenac sodium 75 mg tablet,delayed release (DR/EC) 75 mg PO Q12H PRN (Reason: pain) Qty: 20 0RF Discharge Orders: Discharge ED (Routine); Ordered 08/14/22 Ordered By: Ronit Phoenix Discharge Diet: Usual diet Discharge Activity: Increase activity as tolerated Patient Instructions: Opioid Safety, Pain Management Activity Restrictions/Additional Instructions: Take ibuprofen for pain. Apply ice to reduce swelling and for pain. F/U with PCP in 10 days if no improvement. Coding Level of Care Code ED House Carpenter Helper for Alf Fwd Exam Detailed
== END 2022-08-14 13:06 | disposition home or self-care (01) ==
PROVIDERS: Emergency Provider Physician Assistant
DX: S63.501A Unspecified sprain of right wrist, initial encounter (principal); F17.210 Nicotine dependence, cigarettes, uncomplicated; W19.XXXA Unspecified fall, initial encounter
CPT/HCPCS: 73110; 99283

== ENCOUNTER 2022-09-20 06:54 | Emergency (ER) | payer SELFPAY ==
[2022-09-20 06:58] VITALS: BP 120/89; PULSE 135; RESP 18; TEMP 36.3; O2SAT 98; BMI 18.2
[2022-09-20 07:01] VITALS: BP 143/89; PULSE 116; RESP 20; O2SAT 100
--- NOTE | 2022-09-20 07:11 | W.ED.BACK ---
HPI - Back Pain/Injury General: Chief Complaint: Back Pain/Injury Stated Complaint: Lower back to abd pain Time Seen by Provider: 09/20/22 07:03 History of Present Illness: 26-year-old female presents with right lower back pain that radiates to the right abdomen. She reports that it started about a week ago. Patient thought that initially was just a ruptured ovarian cyst that she had had similar episode about 2 months prior. She reports however that she has had her menstrual cycle and stopped and that she is continue to have the pain and it is worsened. She reports it feels better if she puts pressure on it. She states that she has had subjective fever and chills. She denies any urinary symptoms. She denies any vomiting or diarrhea. Associated symptoms: Reports abdominal pain, chills, fever(s) and nausea; Deny dysuria or vomiting Review of Systems Const: Reports: fever(s) and chills Eyes: Denies: change in vision ENMT: Denies: throat pain or ear or mastoid pain Card: Denies: chest pain or palpitations Resp: Denies: dyspnea or productive cough GI: Reports: abdominal pain and nausea; Denies: vomiting or diarrhea : Reports: flank pain; Denies: dysuria Musc: Reports: back pain; Denies: neck pain Skin/Breast: Denies: rash or erythema Neuro: Denies: headache(s) or dizziness [facility] ED PFSH: Medical History Bipolar affective disorder, current episode mixed, without psychotic features Cannabis dependence with current use Generalized anxiety disorder Nicotine dependence, cigarettes, uncomplicated Opioid type dependence, episodic use Psychiatric care Social History Smoking and tobacco status: current every day smoker cigarettes Packs smoked per day: 1 Years cigarettes smoked: 11 Quit status (tobacco): not considering quitting Second hand smoke exposure: Yes Female Reproductive History: Date of last menstrual period: 09/13/22 Physical Exam Const: COMMON NORMALS: alert GENERAL APPEARANCE: not comfortable NUTRITIONAL APPEARANCE: thin and underweight HENMT: COMMON NORMALS: hearing grossly normal bilaterally and moist oral mucous membranes Eye: COMMON NORMALS: conjunctivae normal CONJUNCTIVA: Yes conjunctivae normal Resp: COMMON NORMALS: normal respiratory effort, No use of accessory muscles and clear to auscultation bilaterally AUSCULTATION: clear to auscultation bilaterally Cardio: COMMON NORMALS: regular rhythm RATE: tachycardic RHYTHM: regular rhythm GI: PALPATION: Yes Tenderness to palpation present (GI) Details: RLQ and Yes Guarding due to palpation present (GI) : BLADDER/KIDNEY EXAM: Yes CVA tenderness on the right Back/Pelvis: GENERAL BACK: Yes CVA tenderness Extremity: COMMON NORMALS: full ROM and capillary refill normal Neuro: COMMON NORMALS: moves all extremities, no focal motor deficits and no sensory deficits noted SENSORIUM/ORIENTATION: Yes alert Psych: COMMON NORMALS: mental status grossly normal, Normal thought process present and speech normal SPEECH: Yes normal speech THOUGHT PROCESS: Normal thought process present Skin: COMMON NORMALS: turgor normal and no jaundice GENERAL SKIN EXAM: turgor normal Course Vital Signs: Vital signs: Vital Signs Temperature 97.3 F L 09/20/22 06:58 Pulse Rate 100 09/20/22 08:17 Respiratory Rate 19 H 09/20/22 08:14 Blood Pressure 133/82 09/20/22 07:53 Pulse Oximetry 100 09/20/22 08:17 Oxygen Delivery Me thod 09/20/22 07:53 MDM - Back Pain/Injury Medical Decision Making Patient's symptoms consistent with pyelonephritis. Patient improved following treatment in ER. She was given 2 g Rocephin IV. She is to be started on Keflex x10 days. Patient needs to follow-up with her primary care provider in 2 to 3 days for recheck of her symptoms. She should return to the ER as needed. Patient is stable and discharged home Labs 09/20/22 07:30 09/20/22 07:30 Radiology Impressions Abdomen/Pelvis CT 09/20/22 08:08 IMPRESSION: 1. [id number] right hydronephrosis with extensive perinephric and periureteric stranding. The wall of the right the renal pelvis and ureter enhance. There are regions of poor enhancement involving the right kidney compatible with pyelonephritis. No definite obstructive stone or lesion is appreciated. Findings concerning for cystitis. Correlate with urinalysis. 2. Hepatomegaly. 3. Trace free pelvic fluid. Laboratory Results WBC 17.4 10^3/uL (4.0-10.0) H 09/20/22 07:30 RBC 4.30 10^6/uL (4.1-5.3) 09/20/22 07:30 Hgb 12.8 g/dL (11.5-15.3) 09/20/22 07:30 Hct 40.5 % (37.0-47.0) 09/20/22 07:30 MCV 94.2 fl (81-99) 09/20/22 07:30 MCH 29.8 pg (28.0-34.0) 09/20/22 07:30 MCHC 31.6 g/dL (30.0-36.0) 09/20/22 07:30 RDW 13.7 % (12.1-15.1) 09/20/22 07:30 Plt Count 512 10^3/cmm (130-400) H 09/20/22 07:30 MPV 9.5 fL (7.4-10.4) 09/20/22 07:30 Neut % (Auto) 75.6 % 09/20/22 07:30 Lymph % (Auto) 14.4 % 09/20/22 07:30 [place] % (Auto) 9.0 % 09/20/22 07:30 Eos % (Auto) 0.2 % 09/20/22 07:30 Baso % (Auto) 0.2 % 09/20/22 07:30 Neut # (Auto) 13.14 10^3/uL (1.8-7.7) H 09/20/22 07:30 Lymph # (Auto) 2.5 10^3/uL (0.8-4.8) 09/20/22 07:30 [place] # (Auto) 1.6 10^3/uL (0.2-0.9) H 09/20/22 07:30 Eos # (Auto) 0.0 10^3/uL (0.0-0.8) 09/20/22 07:30 Baso # (Auto) 0.0 10^3/uL (0.0-0.1) 09/20/22 07:30 Nucleated RBC % (auto) 0 % 09/20/22 07:30 Nucleated RBCs # 0.0 /100WBC 09/20/22 07:30 Sodium 133 mmol/L (136-145) L 09/20/22 07:30 Potassium 3.8 mmol/L (3.5-5.1) 09/20/22 07:30 Chloride 96 mmol/L (98-107) L 09/20/22 07:30 Carbon Dioxide 24 mmol/L (22-29) 09/20/22 07:30 Anion Gap 16.8 (5-19) 09/20/22 07:30 BUN 9 mg/dL (6-20) 09/20/22 07:30 Creatinine 0.7 mg/dL (0.5-0.9) 09/20/22 07:30 GFR Calculation 101.1 mL/min (90-130) 09/20/22 07:30 Glucose 94 mg/dL (65-115) 09/20/22 07:30 Calculated Osmolality 274 mOsm/kg (285-295) L 09/20/22 07:30 Lactate 1.2 mmol/L (0.5-2.2) 09/20/22 07:30 Calcium 9.3 mg/dL (8.5-10.5) 09/20/22 07:30 Total Bilirubin 0.7 mg/dL (0.15-1.2) 09/20/22 07:30 AST 31 U/L (0-32) 09/20/22 07:30 ALT 22 U/L (0-33) 09/20/22 07:30 Alkaline Phosphatase 88 U/L (35-105) 09/20/22 07:30 C-Reactive Protein 33.4 mg/L (0.0-4.9) H 09/20/22 07:30 Total Protein 7.9 g/dL (6.6-8.7) 09/20/22 07:30 Albumin 3.8 g/dL (3.5-5.2) 09/20/22 07:30 Globulin 4.1 g/dL (1.3-4.6) 09/20/22 07:30 Procalcitonin 0.07 ng/mL (0-0.5) 09/20/22 07:30 Urine Color Yellow (Yellow) 09/20/22 07:30 Urine Appearance Sl hazy (CLEAR) A 09/20/22 07:30 Urine pH 8 (5-7) H 09/20/22 07:30 Ur Specific [place] 1.010 (1.005-1.030) 09/20/22 07:30 Urine Protein Neg (Negative) 09/20/22 07:30 Urine Glucose (UA) Norm (Normal) 09/20/22 07:30 Urine Ketones Negative (Negative) 09/20/22 07:30 Urine Blood 3+ (Negative) H 09/20/22 07:30 Urine Nitrate Negative (Negative) 09/20/22 07:30 Urine Bilirubin Neg (Negative) 09/20/22 07:30 Prot Sulfosalicylic Acd Negative (Negative) 09/20/22 07:30 Urine Urobilinogen Norm mg/dL (Negative) 09/20/22 07:30 Ur Leukocyte Esterase 2+ (Negative) H 09/20/22 07:30 Urine RBC 5-10 /hpf (0-2) H 09/20/22 07:30 Urine WBC 15-25 /hpf (0-5) H 09/20/22 07:30 Ur Squamous Epith Cells 5-10 /hpf (0-5) H 09/20/22 07:30 Amorphous Sediment Not Reportable 09/20/22 07:30 Urine Bacteria 1+ /hpf (NONE) H 09/20/22 07:30 Discharge Plan Discharge Patient Disposition: Home Clinical Impression: Pyelonephritis Condition: Stable Prescriptions: New cephalexin 500 mg capsule 500 mg PO Q6H 10 Days Qty: 40 0RF No Action risperidone [Risperdal] 0.5 mg tablet 0.5 mg PO BEDTIME Qty: 15 2RF Rx Instructions: Take one tablet at bedtime trazodone 100 mg tablet 100 mg PO BEDTIME PRN (Reason: insomnia) Tylenol Ex Str Rapid Release 500 mg Tablet 1,000 mg PO Q4H PRN (Reason: Pain) diclofenac sodium 75 mg tablet,delayed release (DR/EC) 75 mg PO Q12H PRN (Reason: pain) Qty: 20 0RF Discharge Orders: Discharge ED (Routine); Ordered 09/20/22 Ordered By: Constantin Young Discharge Diet: Usual diet Discharge Activity: Resume usual activity Patient Instructions: Opioid Safety, Pain Management, Pyelonephritis, Urinary Tract Infection in Women (DC) Activity Restrictions/Additional Instructions: Please follow-up with your primary care provider and 2 to 3 days for recheck of your symptoms, return to the ER if symptoms worsen. Please take your antibiotics as prescribed. Coding Level of Care Code ED Quill Collector for Carolinag Fwd Exam Comprehensive
[2022-09-20] MEDS: ketorolac 30 mg/mL INJ 15 MG IVP (07:28)
[2022-09-20] MEDS: sodium chloride 0.9% 1,000 ML 999 ML IV (07:29)
[2022-09-20 07:45] LABS: Basophils % 0.2 %; Eosinophils % 0.2 %; Hematocrit 40.5 % (37.0-47.0); Hemoglobin 12.8 g/dL (11.5-15.3); Lymphocytes # 2.5 10^3/uL (0.8-4.8); Lymphocytes % 14.4 %; Mean Corpuscular HGB Conc 31.6 g/dL (30.0-36.0); Mean Corpuscular Hemoglobin 29.8 pg (28.0-34.0); Mean Corpuscular Volume 94.2 fl (81-99); Mean Platelet Volume 9.5 fL (7.4-10.4); Monocytes # 1.6 10^3/uL (0.2-0.9); Neutrophils # 13.14 10^3/uL (1.8-7.7); Neutrophils % 75.6 %; Nucleated Red Blood Cells % 0 %; Platelet Count 512 10^3/cmm (130-400); Red Cell Distribution Width 13.7 % (12.1-15.1); White Blood Count 17.4 10^3/uL (4.0-10.0)
[2022-09-20 07:53] VITALS: BP 133/82; PULSE 105; O2SAT 100
[2022-09-20 08:04] LABS: Lactate (Lactic Acid level) 1.2 mmol/L (0.5-2.2)
[2022-09-20 08:05] LABS: Urine Appearance SL Hazy (CLEAR); Urine Color Yellow (Yellow); pH Urine 8 (5-7)
[2022-09-20 08:06] LABS: Alanine Aminotransferase 22 U/L (0-33); Albumin Level 3.8 g/dL (3.5-5.2); Alkaline Phosphatase 88 U/L (35-105); Anion Gap 16.8 (5-19); Aspartate Amino Transferase 31 U/L (0-32); Bilirubin Urine Neg (Negative); Blood Urea Nitrogen 9 mg/dL (6-20); Blood Urine 3+ (Negative); C Reactive Protein 33.4 mg/L (0.0-4.9); Calcium 9.3 mg/dL (8.5-10.5); Carbon Dioxide 24 mmol/L (22-29); Chloride 96 mmol/L (98-107); Globulin 4.1 g/dL (1.3-4.6); Glomerular Filtration Rate 101.1 mL/min (90-130); Glucose 94 mg/dL (65-115); Glucose Urine UA Norm (Normal); Ketones Urine Negative (Negative); Nitrate Urine Negative (Negative); Osmolality Calculated 274 mOsm/kg (285-295); Potassium 3.8 mmol/L (3.5-5.1); Protein Urine Neg (Negative); Sodium 133 mmol/L (136-145); Sulfosalicylic Acid Urine Negative (Negative); Total Bilirubin 0.7 mg/dL (0.15-1.2); Total Protein 7.9 g/dL (6.6-8.7); Urobilinogen Urine Norm (Negative)
[2022-09-20 08:07] LABS: Add Urine Culture? Yes; Add Urine Microscopic? YES; Bacteria Urine 1+ /hpf; Leukocyte Esterase Urine 2+ (Negative); WBC Urine 15-25 /hpf (0-5)
--- NOTE | 2022-09-20 08:08 | CTR_ITS ---
PROCEDURE INFORMATION: Exam: CT Abdomen And Pelvis With Contrast Exam date and time: 09/20/2022 8:28 AM Age: 26 years old Clinical indication: Right flank/right lower quadrant abdominal pain. Elevated white blood cell count. Tubal. TECHNIQUE: Imaging protocol: Computed tomography of the abdomen and pelvis with contrast. Radiation optimization: All CT scans at this facility use at least one of these dose optimization techniques: automated exposure control; mA and/or kV adjustment per patient size (includes targeted exams where dose is matched to clinical indication); or iterative reconstruction. Contrast material: OMNI 350; Contrast volume: 75 ml; Contrast route: INTRAVENOUS (IV); COMPARISON: CT abdomen pelvis w con* [id number] 07/23/2022 9:35 AM RADIATION DOSE METRICS: Total DLP (mGy-cm): 361.23 FINDINGS: Lungs: The lung bases are unremarkable. No pericardial effusion. No hiatal hernia. Liver: The liver is enlarged measuring 19.7 cm. Gallbladder and bile ducts: The gallbladder is unremarkable. Pancreas: The pancreas is unremarkable. Spleen: The spleen is unremarkable. Adrenal glands: The adrenal glands are unremarkable. Kidneys and ureters: There is [id number] right hydronephrosis with extensive perinephric and periureteric stranding. The wall of the right the renal pelvis and ureter enhance. There are regions of poor enhancement involving the right kidney compatible with pyelonephritis. No definite obstructive stone or lesion is appreciated. Stomach and bowel: The stomach and small bowel are unremarkable. The colon is unremarkable. Appendix: The visualized appendix is unremarkable. Intraperitoneal space: No free intraperitoneal air is identified. Trace free pelvic fluid. Vasculature: No abdominal aortic aneurysm. Lymph nodes: No retroperitoneal lymphadenopathy. Urinary bladder: The bladder wall is thickened raising concern for cystitis. Reproductive: The uterus and adnexa are grossly unremarkable. Bones/joints: No acute fracture is seen. Soft tissues: No significant subcutaneous soft tissue swelling. CT/CT abdomen pelvis w con* [id number] IMPRESSION: 1. Cqkw-[id number]-[id number] right hydronephrosis with extensive perinephric and periureteric stranding. The wall of the right the renal pelvis and ureter enhance. There are regions of poor enhancement involving the right kidney compatible with pyelonephritis. No definite obstructive stone or lesion is appreciated. Findings concerning for cystitis. Correlate with urinalysis. 2. Hepatomegaly. 3. Trace free pelvic fluid.
[2022-09-20 08:13] LABS: Procalcitonin 0.07 ng/mL (0-0.5)
[2022-09-20 08:14] VITALS: RESP 19
[2022-09-20] MEDS: fentaNYL 50 mcg/mL INJ 2mL 25 MCG IVP (08:14)
[2022-09-20 08:17] VITALS: PULSE 100; O2SAT 100
[2022-09-20] MEDS: iohexol 350 mg/mL 500 mL Btl (per mL) IV (08:34)
[2022-09-20] MEDS: cefTRIAXone 2,000 MG in sodium chloride 0.9% (plus) 50 ML 100 MG IV (08:52)
[2022-09-20 09:11] VITALS: BP 132/99; PULSE 107; O2SAT 100
== END 2022-09-20 09:15 | disposition home or self-care (01) ==
PROVIDERS: Emergency Provider Student in an Organized Health Care Education/Training Program
DX: N12 Tubulo-interstitial nephritis, not specified as acute or chronic (principal); F17.210 Nicotine dependence, cigarettes, uncomplicated
CPT/HCPCS: 74177; 80053; 81001; 83605; 84145; 85025; 86140; 87077; 87086; 87186; 96365; 96375; 99285; J0696; J1885; J3010; J7030; Q9967

== ENCOUNTER → 2022-09-30 12:26 | Outpatient (BNVA) | payer SELFPAY | PROVIDERS: Visit Provider Registered Nurse Neonatal Intensive Care | DX: S99.921A Unspecified injury of right foot, initial encounter (principal); X50.1XXA Overexertion from prolonged static or awkward postures, initial encounter | CPT/HCPCS: 73630 ==

== ENCOUNTER 2022-11-11 01:57 | Emergency (ER) | payer BC, SELFPAY ==
[2022-11-11 01:58] VITALS: BP 125/85; PULSE 140; RESP 16; TEMP 36.7; O2SAT 98; BMI 19.0
--- NOTE | 2022-11-11 02:09 | W.ED.GENADLT ---
HPI - General Adult General: Chief complaint: General Medical Stated complaint: Panic Attack Time Seen by Provider: 11/11/22 02:09 Limitations: other (panic attack) History of Present Illness: Ms Henson is a 26-year-old lady with history of general anxiety disorder, psychiatric disorder, and substance abuse presenting to the emergency department due to panic attack . History somewhat limited as the patient is hyperventilating and quite anxious in appearance. Upon calming patient and clarification of clinical history she reports tripping and falling and landing on her arm and face while walking on steps at home. This caused her to cry which made her feel short of breath and she became quite anxious triggering an anxiety attack. Otherwise has been at her baseline health. Mood is moderately controlled. She reports compliance with her medication regimen. Denies suicidal or homicidal ideation. No other specific changes in health, exacerbating, or alleviating factors identified. Onset (ago): minute(s) Severity: severe Relieving factors: none Exacerbating factors: other Review of Systems General: Reports: 10 or more systems reviewed and unremarkable except in HPI and below PFSH ED PFSH: Medical History Bipolar affective disorder, current episode mixed, without psychotic features Cannabis dependence with current use Generalized anxiety disorder Nicotine dependence, cigarettes, uncomplicated Opioid type dependence, episodic use Psychiatric care Social History Smoking and tobacco status: current every day smoker cigarettes Packs smoked per day: 1 Years cigarettes smoked: 11 Quit status (tobacco): not considering quitting Second hand smoke exposure: Yes Female Reproductive History: Date of last menstrual period: 09/13/22 Physical Exam Const: COMMON NORMALS: alert GENERAL APPEARANCE: well developed, in distress and anxious HENMT: COMMON NORMALS: normocephalic and atraumatic HEAD & SCALP: normocephalic and atraumatic THROAT: posterior oropharynx normal Eye: COMMON NORMALS: conjunctivae normal CONJUNCTIVA: Yes conjunctivae normal SCLERA: sclerae normal Neck/C-Spine: COMMON NORMALS: supple GENERAL: Yes trachea midline Resp: COMMON NORMALS: clear to auscultation bilaterally EFFORT & INSPECTION: Yes tachypneic AUSCULTATION: clear to auscultation bilaterally Cardio: COMMON NORMALS: regular rhythm RATE: tachycardic RHYTHM: regular rhythm GI: COMMON NORMALS: Soft to palpation PALPATION: Yes Soft to palpation and No Tenderness to palpation present (GI) Extremity: NARRATIVE EXTREMITY EXAM: Tenderness palpation of right proximal arm, minimal ecchymosis, no deformity, distal CMS intact GENERAL: Yes normal exam except as noted and No edema Neuro: COMMON NORMALS: moves all extremities SENSORIUM/ORIENTATION: Yes alert and No Orientation impaired Psych: MOOD & AFFECT: Yes anxious Course Vital Signs: Vital signs: Vital Signs Temperature 98.0 F 11/11/22 01:58 Pulse Rate 99 11/11/22 04:53 Respiratory Rate 18 11/11/22 04:53 Blood Pressure 119/76 11/11/22 04:53 Pulse Oximetry 96 11/11/22 04:53 Oxygen Delivery Me thod 11/11/22 01:58 [facility] - General Adult Medical Decision Making 26-year-old lady presenting with concern over acute anxiety/panic attack. She appears to be hyperventilating and tachypneic. Exam otherwise as above with initial limitation due to acuity of condition and patient symptomatology. Anxiolysis ordered as well as IV fluids. Labs notable for leukocytosis which may be reactive, normal hemoglobin. Metabolic panel with evidence of mild dehydration and likely respiratory alkalosis secondary to hyperventilation. Tox ingestions negative with exception of significantly elevated ethyl alcohol level. Chest ray with no lobar consolidation or thorax. Humerus x-ray negative. Upon reassessment patient is significantly improved. She was able to tolerate p.o. intake. She ambulated with a steady gait. Most likely etiology of patient's symptoms is multifactorial including acute anxiety/panic attack and alcohol intoxication The results of ED evaluation were discussed with the patient and her partner at bedside. I discussed extra precautions given administration of benzodiazepines and patient's level of alcohol. The patient's partner is comfortable taking her home and watching her closely. I discussed prescriptions and/or symptomatic cares (if applicable) including appropriate and responsible use, followup plan, and return precautions. The patient and partner verbalized understanding and felt safe for discharge. Medical Records I reviewed the patient's medical records. Lab Data I reviewed the patient's lab results. 11/11/22 02:25 11/11/22 02:25 Radiology Impressions Chest X-Ray 11/11/22 02:12 IMPRESSION: 1. No acute cardiopulmonary abnormality. 2. A 1.8 cm linear radiodensity projecting over the hemithorax may be external to the patient. Humerus X-Ray 11/11/22 02:17 IMPRESSION: No acute fracture or malalignment. Laboratory Results WBC 16.8 10^3/uL (4.0-10.0) H 11/11/22 02:25 RBC 4.58 10^6/uL (4.1-5.3) 11/11/22 02:25 Hgb 14.0 g/dL (11.5-15.3) 11/11/22 02:25 Hct 42.2 % (37.0-47.0) 11/11/22 02:25 MCV 92.1 fl (81-99) 11/11/22 02:25 MCH 30.6 pg (28.0-34.0) 11/11/22 02:25 MCHC 33.2 g/dL (30.0-36.0) 11/11/22 02:25 RDW 13.4 % (12.1-15.1) 11/11/22 02:25 Plt Count 370 10^3/cmm (130-400) 11/11/22 02:25 MPV 9.6 fL (7.4-10.4) 11/11/22 02:25 Neut % (Auto) 78.5 % 11/11/22 02:25 Lymph % (Auto) 15.4 % 11/11/22 02:25 [place] % (Auto) 5.0 % 11/11/22 02:25 Eos % (Auto) 0.2 % 11/11/22 02:25 Baso % (Auto) 0.2 % 11/11/22 02:25 Neut # (Auto) 13.16 10^3/uL (1.8-7.7) H 11/11/22 02:25 Lymph # (Auto) 2.6 10^3/uL (0.8-4.8) 11/11/22 02:25 [place] # (Auto) 0.8 10^3/uL (0.2-0.9) 11/11/22 02:25 Eos # (Auto) 0.0 10^3/uL (0.0-0.8) 11/11/22 02:25 Baso # (Auto) 0.0 10^3/uL (0.0-0.1) 11/11/22 02:25 Nucleated RBC % (auto) 0 % 11/11/22 02:25 Nucleated RBCs # 0.0 /100WBC 11/11/22 02:25 Sodium 140 mmol/L (136-145) 11/11/22 02:25 Potassium 4.3 mmol/L (3.5-5.1) 11/11/22 02:25 Chloride 105 mmol/L (98-107) 11/11/22 02:25 Carbon Dioxide 18 mmol/L (22-29) L 11/11/22 02:25 Anion Gap 21.3 (5-19) H 11/11/22 02:25 BUN 11 mg/dL (6-20) 11/11/22 02:25 Creatinine 0.6 mg/dL (0.5-0.9) 11/11/22 02:25 GFR Calculation 120.8 mL/min (90-130) 11/11/22 02:25 Glucose 102 mg/dL (65-115) 11/11/22 02:25 Calculated Osmolality 290 mOsm/kg (285-295) 11/11/22 02:25 Calcium 8.8 mg/dL (8.5-10.5) 11/11/22 02:25 Total Bilirubin 0.2 mg/dL (0.15-1.2) 11/11/22 02:25 AST 29 U/L (0-32) 11/11/22 02:25 ALT 17 U/L (0-33) 11/11/22 02:25 Alkaline Phosphatase 81 U/L (35-105) 11/11/22 02:25 Total Protein 8.3 g/dL (6.6-8.7) 11/11/22 02:25 Albumin 4.9 g/dL (3.5-5.2) 11/11/22 02:25 Globulin 3.4 g/dL (1.3-4.6) 11/11/22 02:25 Salicylates 0.6 mg/dL (3-10) L 11/11/22 02:25 Acetaminophen < 5.0 ug/mL (10-30) L 11/11/22 02:25 Ethyl Alcohol 226 mg/dL (0-10) H 11/11/22 02:25 Discharge Plan Discharge Patient Disposition: Home Clinical Impression: Acute anxiety, Alcohol intoxication, Fall, Arm pain, Mild dehydration Condition: Stable Prescriptions: No Action risperidone [Risperdal] 0.5 mg tablet 0.5 mg PO BEDTIME Qty: 15 2RF Rx Instructions: Take one tablet at bedtime trazodone 100 mg tablet 100 mg PO BEDTIME PRN (Reason: insomnia) Tylenol Ex Str Rapid Release 500 mg Tablet 1,000 mg PO Q4H PRN (Reason: Pain) diclofenac sodium 75 mg tablet,delayed release (DR/EC) 75 mg PO Q12H PRN (Reason: pain) Qty: 20 0RF Discharge Orders: Discharge ED (Routine); Ordered 11/11/22 Ordered By: Van Hernandez Discharge Diet: Usual diet Discharge Activity: Resume usual activity Patient Instructions: Alcohol Intoxication (ED), Contusion in Adults (ED), Anxiety (ED) Activity Restrictions/Additional Instructions: Thank you for visiting the emergency department. You were seen and evaluated for acute anxiety in the context of alcohol intoxication. We are pleased that you had improvement of symptoms with medication. Given the combination of anxiolytic and alcohol please ensure that someone is watching closely for the next 12 hours to ensure that you do not become oversedated. Please continue follow-up with your primary care provider and psychiatric care provider. I recommend following CDC recommendations regarding limits on alcohol consumption. Return to the emergency department for anything that you are concerned about a feel needs emergency department evaluation. Coding Level of Care Code ED Shellfish Checker for Alf Rodriguez
--- NOTE | 2022-11-11 02:12 | XRR_ITS ---
PROCEDURE INFORMATION: Exam: XR Chest Exam date and time: 11/11/2022 2:17 AM Age: 26 years old Clinical indication: Shortness of breath; Patient HX: Patient having panic attack with hyperventilation. ; Additional info: SOB TECHNIQUE: Imaging protocol: Radiologic exam of the chest. Views: 1 view. COMPARISON: CR XR chest 1V [id number] 11/28/2018 6:18 PM FINDINGS: Lungs: Unremarkable. No consolidation. Pleural spaces: Unremarkable. No pleural effusion. No pneumothorax. Heart/Mediastinum: Unremarkable. No cardiomegaly. Bones/joints: Unremarkable. Other findings: A 1.8 cm linear radiodensity projecting over the hemithorax may be external to the patient. XR/XR chest 1V portable [id number] IMPRESSION: 1. No acute cardiopulmonary abnormality. 2. A 1.8 cm linear radiodensity projecting over the hemithorax may be external to the patient.
--- NOTE | 2022-11-11 02:17 | XRR_ITS ---
PROCEDURE INFORMATION: Exam: XR Right Humerus Exam date and time: 11/11/2022 2:32 AM Age: 26 years old Clinical indication: Pain and injury or trauma; Fall; Blunt trauma (contusions or hematomas); Arm, upper; Right; Upper arm; Patient HX: Patient states she fell and is C/O of mid humeral pain. ; Additional info: Fall, pain TECHNIQUE: Imaging protocol: Radiologic exam of the Right humerus. Views: 2 or more views. COMPARISON: CR (CHEST, ) 11/11/2022 2:17 AM FINDINGS: Bones/joints: No acute fracture or malalignment. Soft tissues: Normal. XR/[place] [id number] IMPRESSION: No acute fracture or malalignment.
--- NOTE | 2022-11-11 02:29 | ECG_ITS ---
[facility] Test Date: 2022-11-11 Pat Name: Linda Henson Department: Room: Gender: Female Assistant Athletic Trainer: : 1995 Requested By: Van Hernandez Order Number: [id number] [place] MD: Angelita Perez M.D. Measurements Intervals Keyser Rate: 107 P: 81 CA: 152 QRS: 101 QRSD: 88 T: 79 QT: 336 QTc: 449 Interpretive Statements SINUS TACHYCARDIA POSSIBLE LEFT ATRIAL ENLARGEMENT [-0.1mV P-WAVE IN V1/V2] RIGHT AXIS DEVIATION [QRS AXIS > 100] POSSIBLE RIGHT VENTRICULAR CONDUCTION DELAY [RSR (QR) IN V1/V2] MODERATE ST DEPRESSION [0.05+ mV ST DEPRESSION] No previous ECG available for comparison Electronically Signed On 11-11-2022 21:45:22 [employer]OR PASTE MIXING SUPERVISOR by Angelita Perez M.D. [id number]
[2022-11-11 02:31] LABS: Basophils % 0.2 %; Eosinophils % 0.2 %; Hematocrit 42.2 % (37.0-47.0); Lymphocytes # 2.6 10^3/uL (0.8-4.8); Lymphocytes % 15.4 %; Mean Corpuscular HGB Conc 33.2 g/dL (30.0-36.0); Mean Corpuscular Hemoglobin 30.6 pg (28.0-34.0); Mean Corpuscular Volume 92.1 fl (81-99); Mean Platelet Volume 9.6 fL (7.4-10.4); Monocytes # 0.8 10^3/uL (0.2-0.9); Neutrophils # 13.16 10^3/uL (1.8-7.7); Neutrophils % 78.5 %; Nucleated Red Blood Cells % 0 %; Platelet Count 370 10^3/cmm (130-400); Red Blood Count 4.58 10^6/uL (4.1-5.3); Red Cell Distribution Width 13.4 % (12.1-15.1); White Blood Count 16.8 10^3/uL (4.0-10.0)
[2022-11-11] MEDS: diphenhydrAMINE 50 mg/mL SDV 1mL 25 MG IVP (02:31)
[2022-11-11] MEDS: midazolam 1 mg/mL INJ 2 mL IVP (02:31)
[2022-11-11] MEDS: sodium chloride 0.9% 1,000 ML 999 ML IV ×2 (02:32→03:30)
[2022-11-11] MEDS: LORazepam 1 mg Tablet PO (02:32)
[2022-11-11 02:48] LABS: Alanine Aminotransferase 17 U/L (0-33); Albumin Level 4.9 g/dL (3.5-5.2); Alcohol Level 226 mg/dL (0-10); Alkaline Phosphatase 81 U/L (35-105); Anion Gap 21.3 (5-19); Aspartate Amino Transferase 29 U/L (0-32); Blood Urea Nitrogen 11 mg/dL (6-20); Calcium 8.8 mg/dL (8.5-10.5); Carbon Dioxide 18 mmol/L (22-29); Chloride 105 mmol/L (98-107); Globulin 3.4 g/dL (1.3-4.6); Glomerular Filtration Rate 120.8 mL/min (90-130); Glucose 102 mg/dL (65-115); Osmolality Calculated 290 mOsm/kg (285-295); Potassium 4.3 mmol/L (3.5-5.1); Salicylate 0.6 mg/dL (3-10); Sodium 140 mmol/L (136-145); Total Bilirubin 0.2 mg/dL (0.15-1.2); Total Protein 8.3 g/dL (6.6-8.7)
[2022-11-11] MEDS: acetaminophen 325 mg Tablet 650 MG PO (02:54)
[2022-11-11] MEDS: ketorolac 30 mg/mL INJ 15 MG IVP (02:54)
[2022-11-11 02:55] LABS: Acetaminophen < 5.0 ug/mL (10-30)
[2022-11-11 03:04] VITALS: BP 127/82; PULSE 110; RESP 24; O2SAT 98
[2022-11-11 04:00] VITALS: BP 105/72; PULSE 105; RESP 18; O2SAT 96
[2022-11-11 04:53] VITALS: BP 119/76; PULSE 99; RESP 18; O2SAT 96
== END 2022-11-11 04:54 | disposition home or self-care (01) ==
PROVIDERS: Emergency Provider Emergency Medicine
DX: F41.9 Anxiety disorder, unspecified (principal); F10.129 Alcohol abuse with intoxication, unspecified; Y90.7 Blood alcohol level of 200-239 mg/100 ml; E86.0 Dehydration; M79.601 Pain in right arm; F17.210 Nicotine dependence, cigarettes, uncomplicated
CPT/HCPCS: 71045; 73060; 80053; 80307; 85025; 93005; 96361; 96374; 96375; 99285; J1200; J1885; J2250; J7030

== ENCOUNTER → 2023-07-21 11:00 | Outpatient (BNVA) | payer OTHER, SELFPAY | PROVIDERS: Visit Provider Nurse Practitioner Psychiatric/Mental Health | DX: Z79.899 Other long term (current) drug therapy (principal); F31.60 Bipolar disorder, current episode mixed, unspecified; F10.10 Alcohol abuse, uncomplicated; F41.1 Generalized anxiety disorder; F11.20 Opioid dependence, uncomplicated; F12.20 Cannabis dependence, uncomplicated; F17.210 Nicotine dependence, cigarettes, uncomplicated | CPT/HCPCS: 80053; 80061; 83036 ==